=== PATIENT | female | born 1940 | race Caucasian/White ===

== ENCOUNTER 2018-02-27 22:41 | Inpatient (IN) | payer MEDICAID ==
--- NOTE | 2018-02-16 22:00 | NUR ---
SLEEPING AT THIS TIME. CALL LIGHT AT BEDSIDE AND BED ALARM ON . TELEMETRY MONITORING.
[~2018-02-27] VITALS: Ht 154.9 cm; Wt 67.6 kg
[2018-02-27 22:46] VITALS: BP 147/61
--- NOTE | 2018-02-27 22:51 | NUR ---
PT TO BR VIA W/C AND THEN TO ER LOBBY IN STABLE CONDITION.
--- NOTE | 2018-02-27 23:29 | NUR ---
PT TAKEN TO BED 2. FAMILY AT BEDSIDE
[2018-02-27] MEDS ORDERED: NACL 0.9% 1,000 ML IV ONE (23:40)
--- NOTE | 2018-02-28 00:05 | NUR ---
C/O URINARY FREQUENCY X 2 WEEKS WITH LOWER BACK PAIN . DENIES N/V/D; SKIN IS PINK/WARM/DRY; LUNGS CLEAR BL; HR EVEN AND REGULAR; PT DENIES ANY FEVER, CP, SOB, OR COUGH AT THIS TIME; PATIENT STATES PAIN OF 6/10 AT THIS TIME; VSS; PATIENT POSITIONED FOR COMFORT; HOB ELEVATED; BEDRAILS UP X2; BED DOWN. ER MD MADE AWARE OF PT STATUS. PT'S GRANDAUGHTER AT BEDSIDE.
[2018-02-28 00:09] LABS: BASOPHILS # (AUTO) 0.1 K/uL (0.00-0.22); BASOPHILS % (AUTO) 0.5 % (0.0-2.0); EOSINOPHILS % (AUTO) 0.1 % (0.0-4.0); HEMATOCRIT 36.6 % (36-48); HEMOGLOBIN 12.4 g/dL (12.0-16.0); LYMPHOCYTES # (AUTO) 1.8 K/uL (2.5-16.5); MEAN CORPUSCULAR HEMOGLOBIN 31 pg (27-31); MEAN CORPUSCULAR HGB CONC 34 g/dL (33-37); MEAN CORPUSCULAR VOLUME 91.8 fL (80-94); MONOCYTES # (AUTO) 0.9 K/uL (0.8-1.0); MONOCYTES % (AUTO) 8.4 % (1.7-9.3); NEUTROPHILS # (AUTO) 7.6 K/uL (1.8-7.7); PLATELET COUNT (AUTO) 349 K/uL (140-450); RED BLOOD CELL COUNT(AUTO) 3.98 MIL/uL (4.20-5.40); RED CELL DISTRIBUTION WIDTH 14.7 % (11.6-13.7); WHITE BLOOD COUNT (AUTO) 10.3 K/uL (4.8-10.8)
[2018-02-28] MEDS ORDERED: IBUPROFEN 800 MG TAB PO ONE (00:10)
[2018-02-28] MEDS ORDERED: IBUPROFEN 800 MG TAB ONE (00:14)
[2018-02-28 00:17] LABS: CARBON DIOXIDE 26.5 mmol/L (21-32); CHLORIDE 101 mmol/L (98-107); CREATININE 1.3 mg/dL (0.6-1.3); GLUCOSE 150 mg/dL (74-106); POTASSIUM 3.5 mmol/L (3.5-5.1); SODIUM SERUM 137 mmol/L (136-145); UREA NITROGEN, BLOOD 27 mg/dL (7-18)
--- NOTE | 2018-02-28 00:20 | NUR ---
Dr. Yang evaluating patient at bedside.
[2018-02-28 00:23] LABS: ALBUMIN 3.2 g/dL (3.4-5.0); ASPARTATE AMINOTRANSFERASE 20 U/L (15-37); TOTAL BILIRUBIN 0.4 mg/dL (0.0-1.0)
[2018-02-28] MEDS ORDERED: NACL 0.9% 1,000 ML IV ONE (00:30)
[2018-02-28] MEDS ORDERED: cefTRIAXone 1,000 MG VIAL ONE (00:46)
--- NOTE | 2018-02-28 00:59 | NUR ---
UA SENT TO LAB
--- NOTE | 2018-02-28 01:09 | NUR ---
REPORT GIVEN TO DAYNA ESTRADA SLEEPING WITHOUT ANY RESPIRATORY DISTRESS OR DISCOMFORT AT THIS MOMENT, FAMILY AT BEDSIDE.
[2018-02-28] MEDS ORDERED: KETOROLAC 15 MG/ML VIAL IVP PRN (01:10)
[2018-02-28] MEDS ORDERED: ONDANSETRON 4 MG/2 ML VIAL IM/IVP PRN (01:10)
[2018-02-28] MEDS ORDERED: HYDROcodone/APAP 5/325 MG 1 TAB TAB PO PRN (01:10)
[2018-02-28] MEDS ORDERED: DOCUSATE SODIUM 100 MG GELCAP PO PRN (01:10)
[2018-02-28] MEDS ORDERED: ACETAMINOPHEN 325 MG TAB PO PRN (01:10)
[2018-02-28 01:25] LABS: APPEARANCE,URINE CLOUDY (CLEAR); BILIRUBIN,URINE NEGATIVE (NEGATIVE); BLOOD, URINE 2+ (NEGATIVE); COLOR,URINE YELLOW (YELLOW); LEUKOCYTE ESTERASE ,URINE 3+ (NEGATIVE); NITRITE, URINE NEGATIVE (NEGATIVE); PH,URINE 5.5 (5.0-9.0); UGLUCOSE NEGATIVE (NEGATIVE)
--- NOTE | 2018-02-28 01:29 | NUR ---
Dr. Sousa evaluating patient at bedside.
[2018-02-28 01:37] LABS: WBC,URINE TOO MANY TO COUNT /HPF (0-5)
[2018-02-28 01:38] LABS: RBC,URINE 11-20 (MOD) /HPF (0-5)
--- NOTE | 2018-02-28 01:43 | NUR ---
pt sent to tele bed 121b with reshma hudson at bedside
--- NOTE | 2018-02-28 01:47 | NUR ---
Patient will be admitted to care of DR TOVAR. Admited to TELE. Will go to room 121B. Belongings list completed. Report to JESSICA SABILLON.
--- NOTE | 2018-02-28 01:52 | NUR ---
RECEIVED FROM ER PER BILLIE AWAKE AND ALERT. NO SOB. DX. OF UTI. PT AFEBRILE AT THIS TIME. CALL LIGHT WITH IN REACH. PT. ORIENTED TO ROOM AND CARE GIVERS. PT. LIVES WITH DAUGHTER BOOGIE . AT PRESENT ACCOMPANIED BY GRANDDAUGHTER RUDY WHO SPEAKS ESTONIAN WELL. SKIN INTACT WITH DISCOLORATION TO LOWER EXTREMITIES. NO EDEMA NOTED. RAPID RESPONSE EXPLAINED TO THEM.
[2018-02-28] MEDS ORDERED: POTA8TER12 PO (01:55)
[2018-02-28] MEDS ORDERED: FURO-572 PO (01:55)
[2018-02-28] MEDS ORDERED: MELO7.5T11 PO (01:55)
[2018-02-28] MEDS ORDERED: AMLO10TA PO (01:55)
[2018-02-28] MEDS ORDERED: ZYL300 PO (01:55)
[2018-02-28 02:35] VITALS: BP 116/48
[2018-02-28 02:42] LABS: PROTHROMBIN TIME 11.2 secs (10.8-13.4)
[2018-02-28 02:55] LABS: FREE T4 (FREE THYROXINE) 2.06 ng/dL (0.76-1.46); MAGNESIUM 2.1 mg/dL (1.8-2.4); PHOSPHORUS 3.1 mg/dL (2.5-4.9); THYROID STIMULATING HORMONE 1.62 uIU/mL (0.34-3.74)
[2018-02-28] MEDS: NACL 0.9% 1,000 ML IV SCH ×3 (03:06→21:09)
--- NOTE | 2018-02-28 04:49 | NUR ---
PT. SLEPT WELL THIS SHIFT. WOKE UP EASILY WHEN VITAL SIGNS TAKEN. FLACC 0-. AFEBRILE. TELEMETRY MONITORING. NOTED WITH FORGETFULNESS AND SLOW TO ANSWER.
--- NOTE | 2018-02-28 05:43 | NUR ---
AM PERSONAL HYGIENE RENDERED BY CNAS. NO COMPLAINTS DONE. ABLE TO VERBALIZE SIMPLE NEEDS. NO COMPLAINTS OF PAIN DONE. AFEBRILE. TELEMETRY MONITORING. CALL LIGHT WITH IN REACH.
--- NOTE | 2018-02-28 06:54 | NUR ---
PT. AWAKE AND ASSISTED TO RESTROOM TO URINATE. BED ALARM ON. CALL LIGHT WITH IN REACH.
--- NOTE | 2018-02-28 07:20 | NUR ---
RECEIVED REPORT FROM CAMP HOUSEKEEPER NURSE, PT IS SLEEPING IN BED BUT EASILY AWAKEN, AMBULATES WITH ASSIST, IV IS ON THE RIGHT AC, PATENT, INTACT, FLUSHING WELL, SKIN IS INTACT, NO S/S OF RESPIRATORY DISTRESS OR DISCOMFORT NOTED, DISCUSSED PLAN OF CARE WITH PT, PT VERBALIZED UNDERSTANDING, SAFETY/FALL PRECAUTIONS ARE IN PLACE, CALL LIGHT WITHIN REACH, WILL CONTINUE TO MONITOR.
--- NOTE | 2018-02-28 07:39 | NUR ---
ENDORSED TO THE NEXT RN FOR CONTINUITY OF CARE AWAKE AND ALERT. NO SOB. NO PAIN COMPLAINTS DONE.
[2018-02-28 07:56] LABS: BASOPHILS # (AUTO) 0.1 K/uL (0.00-0.22); BASOPHILS % (AUTO) 1.2 % (0.0-2.0); EOSINOPHILS % (AUTO) 0.5 % (0.0-4.0); HEMATOCRIT 37.7 % (36-48); HEMOGLOBIN 12.7 g/dL (12.0-16.0); LYMPHOCYTES # (AUTO) 1.8 K/uL (2.5-16.5); LYMPHOCYTES % (AUTO) 23.5 % (20.5-51.1); MEAN CORPUSCULAR HEMOGLOBIN 31 pg (27-31); MEAN CORPUSCULAR HGB CONC 34 g/dL (33-37); MEAN CORPUSCULAR VOLUME 93.4 fL (80-94); MONOCYTES # (AUTO) 0.7 K/uL (0.8-1.0); MONOCYTES % (AUTO) 9.7 % (1.7-9.3); NEUTROPHILS # (AUTO) 4.9 K/uL (1.8-7.7); NEUTROPHILS % (AUTO) 65.1 % (42.2-75.2); PLATELET COUNT (AUTO) 339 K/uL (140-450); RED BLOOD CELL COUNT(AUTO) 4.04 MIL/uL (4.20-5.40); RED CELL DISTRIBUTION WIDTH 14.9 % (11.6-13.7); WHITE BLOOD COUNT (AUTO) 7.5 K/uL (4.8-10.8)
[2018-02-28 07:57] LABS: ANION GAP 12.7 (8-16); CARBON DIOXIDE 24.1 mmol/L (21-32); CHLORIDE 110 mmol/L (98-107); GLUCOSE 119 mg/dL (74-106); POTASSIUM 3.8 mmol/L (3.5-5.1); SODIUM SERUM 143 mmol/L (136-145); UREA NITROGEN, BLOOD 22 mg/dL (7-18)
[2018-02-28 08:00] VITALS: BP 130/58
[2018-02-28 08:12] LABS: CHOL/HDL RATIO 3.7 (1-4.5); MAGNESIUM 2.1 mg/dL (1.8-2.4); PHOSPHORUS 3.8 mg/dL (2.5-4.9)
--- NOTE | 2018-02-28 08:46 | NUR ---
PATIENT HAS BEEN SCREENED AND CATEGORIZED MODERATE NUTRITION RISK. PATIENT WILL BE SEEN WITHIN 3-5 DAYS OF ADMISSION. 03/02/18 03/04/[address]
[2018-02-28] MEDS ORDERED: NON-FORMULARY ITEM (Meloxicam* (Mobic*) 7.5 MG) PO SCH (09:00)
[2018-02-28] MEDS: LACTOBACILLUS RHAMNOSUS GG 1 EACH CAP PO SCH (09:40)
[2018-02-28] MEDS: ALLOPURINOL 300 MG TAB PO SCH (09:41)
[2018-02-28] MEDS: FUROSEMIDE 20 MG TAB PO SCH (09:41)
[2018-02-28] MEDS: POTASSIUM CHLORIDE 8 MEQ TABER PO SCH (09:42)
[2018-02-28] MEDS: amLODIPine 5 MG TAB PO SCH (09:42)
--- NOTE | 2018-02-28 10:45 | NUR ---
ASSISTED PT TO RESTROOM AND BACK INTO BED.
[2018-02-28 12:00] VITALS: BP 132/63
[2018-02-28] MEDS: KETOROLAC 15 MG/ML VIAL IVP SCH ×2 (12:08→17:44)
--- NOTE | 2018-02-28 13:00 | NUR ---
PT IS RESTING IN BED, NO S/S OF RESPIRATORY DISTRESS OR DISCOMFORT NOTED, FAMILY IS AT BEDSIDE, CALL LIGHT WITHIN REACH.
--- NOTE | 2018-02-28 15:30 | NUR ---
PT IS SLEEPING IN BED AT THIS TIME, FAMILY IS AT BEDSIDE, CALL LIGHT WITHIN REACH.
[2018-02-28 16:00] VITALS: BP 154/71
--- NOTE | 2018-02-28 17:33 | NUR ---
PT IS RESTING IN BED, FAMILY IS AT BEDSIDE, CALL LIGHT WITHIN REACH.
--- NOTE | 2018-02-28 19:15 | NUR ---
ENDORSED PT TO ACTIVATED SLUDGE OPERATOR NURSE FOR CONTINUITY OF CARE. PT STABLE AT THIS TIME, FAMILY IS AT BEDSIDE.
--- NOTE | 2018-02-28 19:27 | NUR ---
RECEIVED FROM AM RN IN BED AWAKE AND WITH FAMILY MEMBERS VISITING. PT. SITTING UP IN BED. CALL LIGHT WITH IN REACH. NO SOB. DENIES PAIN AT THIS TIME. PT. DENIES PAIN AT THIS TIME. ON BED ALARM. ENCOURAGED TO CALL FOR ANY HELP SHE MAY NEED. PT. ASSISTED TO RESTROOM INSIDE ROOM RT FALL RISK. IVF SITE TO RAC INTACT AND NO INFILTRATION NOTED. GOOD BLOOD RETURN. TELEMETRY MONITORING. NSR ON MONITOR.
[2018-02-28 20:05] VITALS: BP 121/48
--- NOTE | 2018-02-28 21:30 | NUR ---
PT. STILL AWAKE AND WATCHING TV. CALL LIGHT WITH IN REACH. BED ALARM ON. ENCOURAGED TO REST.
[2018-02-28 23:59] VITALS: BP 137/51
[2018-03-01] MEDS: KETOROLAC 15 MG/ML VIAL IVP SCH ×4 (00:06→18:01)
--- NOTE | 2018-03-01 00:21 | NUR ---
PT. WOKE UP AND REQUESTED TO GO RESTROOM TO URINATE. ASSISTED. WENT BACK TO BED AND MADE SURE BED ALARM ON. CALL LIGHT WITH IN REACH. MEDICATED WITH TORADOL IVP FOR MUSCULAR PAINS ORDERED . HX. ARTHRITIS AND GOUT. ABLE TO VERBALIZE SIMPLE NEEDS IN ESTONIAN. IVF SITE INTACT AND NO INFILTRATION.
--- NOTE | 2018-03-01 03:32 | NUR ---
SLEEPING WELL. NO COMPLAINTS . TELEMETRY MONITORING. CALL LIGHT WITH IN REACH.
--- NOTE | 2018-03-01 04:13 | NUR ---
AWAKE AT THIS TIME. VITAL SIGNS TAKEN. ABLE TO VERBALIZE SIMPLE NEEDS. WELDER/FABRICATOR ASSISTED PT. TO RESTROOM . ABLE TO URINATE. CALL LIGHT WITH IN REACH AND ON BED ALARM. AM PERSONAL HYGIENE WILL BE RENDERED BY WELDER/FABRICATOR. AFEBRILE 98.7 PER TEMPORAL SCAN.
[2018-03-01 04:15] VITALS: BP 129/48
[2018-03-01] MEDS: NACL 0.9% 1,000 ML IV SCH (06:13)
--- NOTE | 2018-03-01 06:16 | NUR ---
SLEEPING WELL. WAKES UP EASILY WHEN CALLED BY NAME. VERBALIZES SIMPLE NEEDS WELL. TELEMETRY MONITORING. NSR ON MONITOR.
--- NOTE | 2018-03-01 07:14 | NUR ---
ENDORSED TO THE NEXT RN FOR CONTINUITY OF CARE. AWAKE , ALERT AND ORIENTED. NO COMPLAINTS DONE.
--- NOTE | 2018-03-01 07:15 | NUR ---
RECEIVED REPORT FROM SITE MONITOR RN. PATIENT IS AAOX4, HAS NO SIGNS AND SYMPTOMS OF ACUTE DISTRESS NOTED AT THIS TIME. PATIENT HAS IV TO THE RIGHT HAND 20G, INFUSING NS AT 100 ML/HR. SITE IS CLEAN, DRY, PATENT AND INTACT. DISCUSSED PLAN OF CARE WITH PATIENT AND SHE VERBALIZED UNDERSTANDING. BED IN LOWEST POSITION, SIDE RAILS UP X2, CALL LIGHT WITHIN REACH. WILL CONTINUE TO MONITOR.
[2018-03-01 08:00] VITALS: BP 110/44
[2018-03-01] MEDS: amLODIPine 5 MG TAB PO SCH (09:00)
[2018-03-01] MEDS: ALLOPURINOL 300 MG TAB PO SCH (09:32)
[2018-03-01] MEDS: LACTOBACILLUS RHAMNOSUS GG 1 EACH CAP PO SCH (09:32)
[2018-03-01] MEDS: FUROSEMIDE 20 MG TAB PO SCH (09:33)
[2018-03-01] MEDS: POTASSIUM CHLORIDE 8 MEQ TABER PO SCH (09:33)
--- NOTE | 2018-03-01 10:32 | NUR ---
DECREASED PATIENTS IV FLUIDS TO 30 ML/HR ORDERED. PATIENT IV SITE IS PATENT, WITH NO SIGNS OF REDNESS OR PAIN. PATIENT RESTING IN BED. WILL CONTINUE TO MONITOR.
[2018-03-01 11:11] LABS: BASOPHILS % (AUTO) 0.5 % (0.0-2.0); EOSINOPHILS # (AUTO) 0.1 K/uL (0-0.4); EOSINOPHILS % (AUTO) 1.4 % (0.0-4.0); HEMATOCRIT 33.1 % (36-48); HEMOGLOBIN 11.1 g/dL (12.0-16.0); LYMPHOCYTES # (AUTO) 1.5 K/uL (2.5-16.5); LYMPHOCYTES % (AUTO) 22.8 % (20.5-51.1); MEAN CORPUSCULAR HEMOGLOBIN 31 pg (27-31); MEAN CORPUSCULAR HGB CONC 34 g/dL (33-37); MEAN CORPUSCULAR VOLUME 92.4 fL (80-94); MONOCYTES # (AUTO) 0.8 K/uL (0.8-1.0); MONOCYTES % (AUTO) 11.9 % (1.7-9.3); NEUTROPHILS # (AUTO) 4.1 K/uL (1.8-7.7); NEUTROPHILS % (AUTO) 63.4 % (42.2-75.2); PLATELET COUNT (AUTO) 316 K/uL (140-450); RED BLOOD CELL COUNT(AUTO) 3.58 MIL/uL (4.20-5.40); WHITE BLOOD COUNT (AUTO) 6.5 K/uL (4.8-10.8)
[2018-03-01] MEDS ORDERED: ALBUTEROL SULFATE/IPRATROPIU 3 ML SOL IH PRN (11:25)
[2018-03-01 11:30] LABS: CARBON DIOXIDE 24.1 mmol/L (21-32); CHLORIDE 110 mmol/L (98-107); CREATININE 1.1 mg/dL (0.6-1.3); GLUCOSE 124 mg/dL (74-106); POTASSIUM 3.1 mmol/L (3.5-5.1); SODIUM SERUM 143 mmol/L (136-145); UREA NITROGEN, BLOOD 21 mg/dL (7-18)
[2018-03-01 11:56] VITALS: BP 116/44
--- NOTE | 2018-03-01 14:08 | NUR ---
PATIENT HAS BEEN DOWNGRADED TO MED SURG.
[2018-03-01] MEDS ORDERED: POTASSIUM CHLORIDE 10 MEQ TABER PO SCH (14:30)
[2018-03-01 16:00] VITALS: BP 146/60
--- NOTE | 2018-03-01 19:27 | NUR ---
ENDORSED PATIENT TO UX CONSULTANT RN FOR CONTINUITY OF CARE. PATIENT IN STABLE CONDITION.
--- NOTE | 2018-03-01 19:30 | NUR ---
RECEIVED PATIENT AWAKE SITTING ON THE SIDE OF THE BED ACCOMPANIED BY FAMILY MEMBERS. PATIENT IS BELIZEAN SPEAKING PATIENT. EXPLAINED TO FAMILY MEMBERS THE PLAN OF CARE. FALL PRECAUTION APPLIED. CALL LIGHT WITHIN REACH. WILL CONTINUE TO MONITOR.
--- NOTE | 2018-03-01 21:05 | NUR ---
SEEN PATIENT ASLEEP ON BED. NO S/S OF DISTRESS NOTED AT THIS TIME. CALL LIGHT WITHIN REACH. WILL CONTINUE TO MONITOR.
--- NOTE | 2018-03-02 | NUR ---
NO COMPLAINED OF PAIN AT THIS TIME. TORADOL NOT GIVEN. WILL CONTINUE TO MONITOR..
--- NOTE | 2018-03-02 00:50 | NUR ---
ASSISTING PATIENT TO BATHROOM. FALL PRECAUTION APPLIED. WAIT OUTSIDE THE BATHROOM AND ASSIST PATIENT BACK TO BED. ALL NEEDS ATTENDED. CALL LIGHT WITHIN REACH. WILL CONTINUE TO MONITOR.
--- NOTE | 2018-03-02 02:30 | NUR ---
ESCORTED PATIENT TO BATHROOM AND WENT #2. PATIENT ASSISTED BACK TO BED. PATIENT TOLERATED WELL. FALL PRECAUTION APPLIED. CALL LIGHT WITHIN REACH. WILL CONTINUE TO MONITOR.
[2018-03-02 04:00] VITALS: BP 136/52
--- NOTE | 2018-03-02 04:00 | NUR ---
SEEN PATIENT AWAKE LYING ON BED. V/S TAKEN AND RECORDED. ALL NEEDS ATTENDED. CALL LIGHT WITHIN REACH. NO S/S OF DISTRESS NOTED AT THIS TIME.
[2018-03-02] MEDS: KETOROLAC 15 MG/ML VIAL IVP SCH ×5 (06:32→23:06)
[2018-03-02] MEDS: NACL 0.9% 1,000 ML IV SCH ×2 (07:09→15:56)
--- NOTE | 2018-03-02 07:22 | NUR ---
GAVE REPORT TO AM SHIFT RN AT BEDSIDE FOR CONTINUITY OF CARE. PATIENT IN STABLE CONDITION.
--- NOTE | 2018-03-02 07:23 | NUR ---
REPORT RECEIVED FROM SECURITY ALARM INSTALLER. PT IS A'OX3 VERBALLY RESPONSIVE , MACANESE SPEAKING, VERBALLY RESPONSIVE ABLE TO MAKER HER NEEDS KNOWN. DENIES ANY PAIN AT THIS TIME. VS WNL. RESPIRATION EVEN AND UNLABOURED ON RA, LUNGS CTA ON ALL LOBES. IV SITE CLEAN DRY INTACT AND PATENT ON IVF PER ORDERS. NKDA. AMBULATE WITH ASSIST. ABDOMEN SOFT NON DISTENDED. REVIEW PLAN OF CARE, PT VERBALIZED UNDERSTANDING. SAFETY MEASURES IN PLACE. CALL LIGHT WITHIN REACH. HOURLY ROUNDS ONGOING. WILL CONTINUE TO MONITOR CLOSELY.
[2018-03-02] MEDS ORDERED: MECLIZINE 25 MG TAB PO PRN (07:40)
[2018-03-02 08:00] VITALS: BP 119/57
[2018-03-02 08:50] LABS: ANION GAP 11.4 (8-16); CARBON DIOXIDE 24.3 mmol/L (21-32); CHLORIDE 108 mmol/L (98-107); GLUCOSE 103 mg/dL (74-106); POTASSIUM 3.7 mmol/L (3.5-5.1); SODIUM SERUM 140 mmol/L (136-145); UREA NITROGEN, BLOOD 18 mg/dL (7-18)
[2018-03-02] MEDS: amLODIPine 5 MG TAB PO SCH (08:50)
[2018-03-02] MEDS: POTASSIUM CHLORIDE 8 MEQ TABER PO SCH (08:51)
[2018-03-02] MEDS: LACTOBACILLUS RHAMNOSUS GG 1 EACH CAP PO SCH (08:51)
[2018-03-02] MEDS: FUROSEMIDE 20 MG TAB PO SCH (08:51)
[2018-03-02] MEDS: ALLOPURINOL 300 MG TAB PO SCH (08:52)
--- NOTE | 2018-03-02 09:00 | NUR ---
PATIENT SITTING IN BED WATCHING TV. NO DISTRESS NOTED. SCHEDULED MEDICATIONS DUE GIVEN. WILL CONTINUE TO MONITOR.
[2018-03-02 09:13] LABS: HEMATOCRIT 34.1 % (36-48); HEMOGLOBIN 11.6 g/dL (12.0-16.0); MEAN CORPUSCULAR VOLUME 94.9 fL (80-94); WHITE BLOOD COUNT (AUTO) 7.5 K/uL (4.8-10.8)
[2018-03-02 09:14] LABS: BASOPHILS % (AUTO) 0.2 % (0.0-2.0); EOSINOPHILS % (AUTO) 1.4 % (0.0-4.0); LYMPHOCYTES # (AUTO) 2.4 K/uL (2.5-16.5); LYMPHOCYTES % (AUTO) 32.7 % (20.5-51.1); MEAN CORPUSCULAR HEMOGLOBIN 32 pg (27-31); MEAN CORPUSCULAR HGB CONC 34 g/dL (33-37); MONOCYTES # (AUTO) 0.7 K/uL (0.8-1.0); MONOCYTES % (AUTO) 9.8 % (1.7-9.3); NEUTROPHILS # (AUTO) 4.3 K/uL (1.8-7.7); NEUTROPHILS % (AUTO) 55.9 % (42.2-75.2); PLATELET COUNT (AUTO) 341 K/uL (140-450)
[2018-03-02 09:15] LABS: EOSINOPHILS # (AUTO) 0.1 K/uL (0-0.4)
--- NOTE | 2018-03-02 09:35 | NUR ---
RADIOLOGIST AT BEDSIDE TO TAKE PATIENT FOR HEAD CT. WILL CONTINUE TO MONITOR WHEN PATIENT RETURNS.
--- NOTE | 2018-03-02 12:42 | NUR ---
PATIENT SITTING IN BED TALKING WITH FAMILY MEMBERS AT BEDSIDE. NO DISTRESS NOTED. DENIES ANY PAIN. SCHEDULED MEDICATIONS DUE GIVEN. SAFETY MEASURES IN PLACE, CALL LIGHT WITHIN REACH. WILL CONTINUE TO MONITOR.
--- NOTE | 2018-03-02 15:00 | NUR ---
PATIENT LYING DOWN IN BED SLEEPING, AROUSABLE BY VOICE. NO DISTRESS NOTED. CONDITION UNCHANGED. WILL CONTINUE TO MONITOR.
[2018-03-02 16:00] VITALS: BP 125/58
--- NOTE | 2018-03-02 19:27 | NUR ---
GAVE REPORT TO HAND WOODWORKING SANDER NURSE FOR CONTINUITY OF CARE. PATIENT IN STABLE CONDITION.
--- NOTE | 2018-03-02 19:30 | NUR ---
RECEIVED REPORT FROM DAYSNMFT NURSE AT BEDSIDE FOR CONTINUITY OF CARE. PT AAOX4. PT TURKISH SPEAKING. PT IV NOTED RFA 22G NS 30ML/HR. NO SOB NO S/S OF DISTRESS ON RA. BED LOWERED CALL LIGHT WITHIN REACH WILL CONTINUE TO MONITOR.
[2018-03-03] VITALS: BP 134/55
--- NOTE | 2018-03-03 00:06 | NUR ---
ADMIN PAIN MED 1 HR AGO. PT CURRENTLY SLEEPING WILL CONTINUE TO MONITOR.
[2018-03-03] MEDS: NACL 0.9% 1,000 ML IV SCH (04:55)
[2018-03-03] MEDS: KETOROLAC 15 MG/ML VIAL IVP SCH (05:31)
--- NOTE | 2018-03-03 07:30 | NUR ---
ENDORSED REPORT TO DAYSHIFT NURSE AT BEDSIDE FOR CONTINUITY OF CARE.
[2018-03-03 08:00] VITALS: BP 117/48
--- NOTE | 2018-03-03 08:00 | NUR ---
PATIENT AWAKE, ALERT. RESPIRATION EVEN, UNLABOR ON ROOM AIR. SKIN DRY AND WARM. DENIED PAIN, SOB AT THIS TIME. IV PATENT AND INTACT. PLAN OF CARE WAS DISCUSSED WITH PATIENT. BED AT LOW POSITION, SIDE RAILS UP. CALL LIGHT WITHIN REACH. BED ALARM ACTIVE
[2018-03-03] MEDS ORDERED: PNEUMOCOCCAL VACCINE 23 MCG/0.5 ML VIAL IMVAC SCH (09:30)
--- NOTE | 2018-03-03 10:00 | NUR ---
PATIENT IS AWAKE, ALERT. RESPIRATION EVEN, UNLABOR ON ROOM AIR. NO DISTRESS NOTED AT THIS TIME. MEDS WERE GIVEN PER ORDER. CALL LIGHT WITHIN REACH
[2018-03-03] MEDS: POTASSIUM CHLORIDE 8 MEQ TABER PO SCH (10:19)
[2018-03-03] MEDS: LACTOBACILLUS RHAMNOSUS GG 1 EACH CAP PO SCH (10:20)
[2018-03-03] MEDS: amLODIPine 5 MG TAB PO SCH (10:20)
[2018-03-03] MEDS: ALLOPURINOL 300 MG TAB PO SCH (10:21)
[2018-03-03] MEDS: FUROSEMIDE 20 MG TAB PO SCH (10:21)
[2018-03-03] MEDS ORDERED: SULF-58 PO (12:08)
--- NOTE | 2018-03-03 12:36 | NUR ---
DISCHARGE INSTRUCTION AND PRESCRIPTION WERE GIVEN TO PATIENT AND FAMILY. PATIENT AND FAMILY VERBALIZED UNDERSTANDING. IV WAS REMOVED, CATHETER INTACT, NO ACTIVE BLEEDING SEEND. PNEUMO VAC WAS GIVEN PER ORDER.
--- NOTE | 2018-03-03 13:00 | NUR ---
ALL BELONGINGS WERE TAKEN WITH THE PATIENT. ID BAND WAS REMOVED. PATIENT WAS ESCORTED OUT BY STAFF IN WHEELCHAIR. PATIENT IS STABLE AT THIS TIME
== END 2018-03-03 13:00 | disposition home or self-care (01) | DRG 48 ==
LOC: MED 22:41 → MTU 02-28 01:09
PROVIDERS: ADMIT General Practice; ATTEND General Practice
PROC: 3E0234Z Introduction of Serum, Toxoid and Vaccine into Muscle, Percutaneous Approach (ICD-10-PCS; principal; 2018-03-03)
DX: G90.9 Disorder of the autonomic nervous system, unspecified (principal); N17.0 Acute kidney failure with tubular necrosis; J84.9 Interstitial pulmonary disease, unspecified; G93.41 Metabolic encephalopathy; N39.0 Urinary tract infection, site not specified; G31.9 Degenerative disease of nervous system, unspecified; I10 Essential (primary) hypertension; E44.1 Mild protein-calorie malnutrition; M10.9 Gout, unspecified; E66.3 Overweight; M19.90 Unspecified osteoarthritis, unspecified site; B96.20 Unspecified Escherichia coli [E. coli] as the cause of diseases classified elsewhere; Z16.20 Resistance to unspecified antibiotic; Z68.28 Body mass index [BMI] 28.0-28.9, adult; Z79.1 Long term (current) use of non-steroidal anti-inflammatories (NSAID); Z79.899 Other long term (current) drug therapy; Z90.49 Acquired absence of other specified parts of digestive tract; Z23 Encounter for immunization
CPT/HCPCS: 36415; 70450; 71045; 80048; 80053; 81001; 82150; 83036; 83605; 83690; 83735; 83880; 84100; 84436; 84439; 84443; 84479; 84484; 85025; 85610; 85730; 87040; 87081; 87086; 87186; 90732; 93005; 96361; 96365; 97110; 97116; 97530; 99285; J0696; J1885; J7030; J7060; Q0092

== ENCOUNTER 2019-08-05 20:49 | Emergency (ER) | payer BC, MEDICAID ==
[~2019-08-05] VITALS: Ht 157.5 cm; Wt 74.8 kg
[~2019-08-05 20:49] MED LIST: AMLO10TA PO; FURO-572 PO; MELO7.5T11 PO; POTA8TER12 PO; SULF-58 PO; ZYL300 PO
[2019-08-05 21:33] VITALS: BP 142/69
--- NOTE | 2019-08-05 21:38 | NUR ---
URINE CUP HANDED TO PT FOR SAMPLE
--- NOTE | 2019-08-05 21:44 | NUR ---
PT TAKEN TO BED 3
--- NOTE | 2019-08-05 21:46 | NUR ---
CAME IN WITH C/O DIARRHEA WITH ABD PAIN , FATIQUE SINCE YESTERDAY
[2019-08-05] MEDS ORDERED: NACL 0.9% 1,000 ML IV ONE (22:25)
[2019-08-05] MEDS ORDERED: ONDANSETRON 4 MG/2 ML VIAL IVP ONE (22:25)
[2019-08-05 22:51] LABS: BASOPHILS # (AUTO) 0.1 K/uL (0.00-0.22); BASOPHILS % (AUTO) 0.9 % (0.0-2.0); EOSINOPHILS # (AUTO) 0.1 K/uL (0-0.4); EOSINOPHILS % (AUTO) 1.2 % (0.0-4.0); HEMATOCRIT 36.9 % (36-48); HEMOGLOBIN 12.6 g/dL (12.0-16.0); LYMPHOCYTES # (AUTO) 1.8 K/uL (2.5-16.5); LYMPHOCYTES % (AUTO) 25.6 % (20.5-51.1); MEAN CORPUSCULAR HEMOGLOBIN 31 pg (27-31); MEAN CORPUSCULAR HGB CONC 34 g/dL (33-37); MEAN CORPUSCULAR VOLUME 90.3 fL (80-94); MONOCYTES # (AUTO) 0.6 K/uL (0.8-1.0); MONOCYTES % (AUTO) 8.8 % (1.7-9.3); NEUTROPHILS # (AUTO) 4.5 K/uL (1.8-7.7); NEUTROPHILS % (AUTO) 63.5 % (42.2-75.2); PLATELET COUNT (AUTO) 202 K/uL (140-450); RED BLOOD CELL COUNT(AUTO) 4.08 MIL/uL (4.20-5.40); WHITE BLOOD COUNT (AUTO) 7.1 K/uL (4.8-10.8)
[2019-08-05 22:52] LABS: APPEARANCE,URINE CLEAR (CLEAR); BILIRUBIN,URINE NEGATIVE (NEGATIVE); BLOOD, URINE TRACE-I (NEGATIVE); COLOR,URINE YELLOW (YELLOW); LEUKOCYTE ESTERASE ,URINE 1+ (NEGATIVE); NITRITE, URINE NEGATIVE (NEGATIVE); UGLUCOSE NEGATIVE (NEGATIVE)
[2019-08-05 23:14] LABS: ALBUMIN 3.2 g/dL (3.4-5.0); ANION GAP 13.2 (8-16); ASPARTATE AMINOTRANSFERASE 33 U/L (15-37); CARBON DIOXIDE 27.4 mmol/L (21-32); CHLORIDE 105 mmol/L (98-107); CREATININE 1.1 mg/dL (0.6-1.3); GLUCOSE 113 mg/dL (74-106); LIPASE 447 U/L (73-393); POTASSIUM 3.6 mmol/L (3.5-5.1); SODIUM SERUM 142 mmol/L (136-145); TOTAL BILIRUBIN 0.4 mg/dL (0.0-1.0); UREA NITROGEN, BLOOD 23 mg/dL (7-18)
--- NOTE | 2019-08-05 23:31 | NUR ---
PT RETURN FROM CT
[2019-08-06 01:29] VITALS: BP 142/69
--- NOTE | 2019-08-06 01:30 | NUR ---
Patient discharged with v/s stable. Written and verbal after care instructions given and explained. Patient alert, oriented and verbalized understanding of instructions. Ambulatory with steady gait. All questions addressed prior to discharge. ID band removed. Patient advised to follow up with PMD. Rx of BENTYL/MACROBID/ACETAMINOPHEN given. Patient educated on indication of medication including possible reaction and side effects. Opportunity to ask questions provided and answered.
== END 2019-08-06 01:30 | disposition home or self-care (01) ==
LOC: MED 20:49
DX: N39.0 Urinary tract infection, site not specified (principal); R19.7 Diarrhea, unspecified; K21.9 Gastro-esophageal reflux disease without esophagitis; I10 Essential (primary) hypertension; Z79.899 Other long term (current) drug therapy; Z90.49 Acquired absence of other specified parts of digestive tract
CPT/HCPCS: 36415; 74176; 80053; 81001; 83690; 85025; 87086; 87804; 96361; 96374; 99284; J2405; J7030; 87186

== ENCOUNTER 2020-05-15 13:26 | Inpatient (IN) | payer BC, SELFPAY ==
[~2020-05-15] VITALS: Ht 154.9 cm; Wt 74.4 kg
--- NOTE | 2020-05-15 13:42 | NUR ---
PATIENT WHEELCHAIR ASSISTED TO BED 1.
--- NOTE | 2020-05-15 13:43 | NUR ---
TO BED 1 VIA W/C WITH C/O DIFFICULT BREATHING. DX COVID (+) YESTERDAY. O2 SAT NOW 84%. PT IS PRIMARILY LITHUANIAN SPEAKING. ATTACHED TO CM = SR WITHOUT ECTOPY. SOB IS NOTED ON EXERTION
[2020-05-15 13:45] VITALS: BP 120/53
--- NOTE | 2020-05-15 14:10 | NUR ---
G DRAWN PER DR. RUANO
[2020-05-15 14:20] VITALS: BP 139/56
[2020-05-15] MEDS ORDERED: DEXAMETHASONE 10 MG/ML VIAL IVP ONE (14:20)
--- NOTE | 2020-05-15 14:20 | NUR ---
PT PLACED ON HIGH FLOW 100% 40 LPM WITH NRB PLACED OVER. SPO2 92% PT TOLERATING WELL MADE AWARE OF OXYGEN DELIVERY DEVICES AND BEDSIDE.
--- NOTE | 2020-05-15 14:30 | NUR ---
BLOOD CULTURES DRAWN X 2, LABS DRAWN
[2020-05-15 14:31] LABS: BASOPHILS % (AUTO) 0.1 % (0.0-2.0); HEMATOCRIT 38.9 % (36-48); HEMOGLOBIN 13.1 g/dL (12.0-16.0); LYMPHOCYTES # (AUTO) 1.4 K/uL (2.5-16.5); LYMPHOCYTES % (AUTO) 9.1 % (20.5-51.1); MEAN CORPUSCULAR HEMOGLOBIN 30 pg (27-31); MEAN CORPUSCULAR HGB CONC 34 g/dL (33-37); MEAN CORPUSCULAR VOLUME 90.3 fL (80-94); MONOCYTES # (AUTO) 0.5 K/uL (0.8-1.0); MONOCYTES % (AUTO) 3.3 % (1.7-9.3); NEUTROPHILS # (AUTO) 13.2 K/uL (1.8-7.7); NEUTROPHILS % (AUTO) 87.5 % (42.2-75.2); PLATELET COUNT (AUTO) 284 K/uL (140-450); RED CELL DISTRIBUTION WIDTH 13.3 % (11.6-13.7); WHITE BLOOD COUNT (AUTO) 15.1 K/uL (4.8-10.8)
[2020-05-15 14:52] LABS: ALBUMIN 2.6 g/dL (3.4-5.0); ANION GAP 17.7 (8-16); ASPARTATE AMINOTRANSFERASE 59 U/L (15-37); CARBON DIOXIDE 23.5 mmol/L (21-32); CHLORIDE 96 mmol/L (98-107); CREATININE 1.5 mg/dL (0.6-1.3); GLUCOSE 164 mg/dL (74-106); POTASSIUM 4.2 mmol/L (3.5-5.1); SODIUM SERUM 133 mmol/L (136-145); TOTAL BILIRUBIN 0.3 mg/dL (0.0-1.0); UREA NITROGEN, BLOOD 29 mg/dL (7-18)
[2020-05-15 14:54] LABS: LACTATE DEHYDROGENASE 406 U/L (81-234)
[2020-05-15] MEDS ORDERED: AZITHROMYCIN 500 MG in DEXTROSE 5% 250 ML IV ONE (14:55)
[2020-05-15] MEDS ORDERED: AZITHROMYCIN 500 MG INJ VIAL IV ONE (15:18)
[2020-05-15] MEDS ORDERED: cefTRIAXone 1,000 MG VIAL ONE (15:19)
[2020-05-15 15:39] LABS: C-REACTIVE PROTEIN QUANT 32.9 mg/dL (0.0-0.9)
[2020-05-15] MEDS ORDERED: POTASSIUM CHLORIDE 10 MEQ TABER PO PRN (15:50)
[2020-05-15] MEDS ORDERED: ONDANSETRON 4 MG/2 ML VIAL IM/IVP PRN (15:50)
[2020-05-15] MEDS ORDERED: DOCUSATE SODIUM 100 MG GELCAP PO PRN (15:50)
[2020-05-15] MEDS ORDERED: ACETAMINOPHEN 325 MG TAB PO PRN (15:50)
[2020-05-15] MEDS ORDERED: ALBUTEROL HFA MDI 90 MCG/ACTUATION 8 GM INH PRN (15:50)
[2020-05-15] MEDS ORDERED: HYDROcodone/APAP 7.5/325 MG 1 TAB PO PRN (15:50)
--- NOTE | 2020-05-15 16:40 | NUR ---
PATIENT ARRIVED ON FLOOR VIA FROYLAN, PT ON O2 NRB MASK 15L WITH HIGH FLOW OXYGEN. SATURATION 85%. IV SITE INTACT, ASYMPTOMATIC, 18G R AC SL. PATIENT AO4 BULGARIAN SPEAKING. VERBALIZED PLAN OF CARE, PATIENT VERBALIZED UNDERSTANDING. PT BULGARIAN SPEAKING ONLY. PATIENT DX COVID + AND ACUTE RESPIRATORY FAILURE. MRSA SCREENING DONE. DROPLET PRECAUTIONS IN PLACE. BED IN LOWEST POSITION WITH ALARM AND BRAKES ON. CALL LIGHT WITHIN REACH, WILL CONTINUE TO MONITOR PATIENT.
[2020-05-15 16:50] VITALS: BP 130/78
--- NOTE | 2020-05-15 16:50 | NUR ---
PT TO BE ADMITTED. REPORT CALLED
[2020-05-15] MEDS ORDERED: CLINICAL MONITORING MC PRN (17:00)
--- NOTE | 2020-05-15 17:05 | NUR ---
TRANSFERED TO FLOOR ATTACHED TO TRANSPORT MONITOR ACCOMPANIED BY ERT AND RN. O2 SAT HAS REMAINED LABILE. 96%N OW
--- NOTE | 2020-05-15 17:45 | NUR ---
CALLED RT, PT O2 AT 84-85% ON 15L NRB WITH HIGH FLOW. RT BOB SAYS HE WILL COME TO ASSESS PATIENT.
[2020-05-15] MEDS ORDERED: REMDESIVIR (EUA) 200 MG in NACL 0.9% 100 ML IV SCH (18:00)
[2020-05-15 18:09] LABS: RSV NEGATIVE (NEGATIVE)
--- NOTE | 2020-05-15 18:13 | NUR ---
SCHEDULED MEDICATION GIVEN. PATIENT TOLERATING IT. O2 AT 83-85%. INFORM PATIENT THAT SHE IS ON BEDREST, IF SHE NEEDS ANYTHING, USE CALL LIGHT. NO EXERTION. PATIENT VERBALIZED UNDERSTANDING.
[2020-05-15 19:08] LABS: CHOL/HDL RATIO 4.1 (1-4.5); FREE T4 (FREE THYROXINE) 4.28 ng/dL (0.76-1.46); MAGNESIUM 2.3 mg/dL (1.8-2.4); PHOSPHORUS 3.4 mg/dL (2.5-4.9); THYROID STIMULATING HORMONE 2.85 uIU/mL (0.34-3.74)
--- NOTE | 2020-05-15 19:20 | NUR ---
REPORT GIVEN TO FUN HOUSE ATTENDANT AT BEDSIDE FOR CONTINUITY OF CARE. PT HAS NO S/S OF DISTRESS OR SOB. O2 ON NRB MASK 15L AND HIGH FLOW OXYGEN 85%
--- NOTE | 2020-05-15 19:22 | NUR ---
RECEIVED BEDSIDE REPORT FROM DAYSHIFT NURSE. PATIENT IS AWAKE, ALERT, AND ORIENTED. IV 18 G ON RAC IS INTACT AND PATENT. PATIENT IS ON 15 L NRB AND O2 SAT 83%. PLAN OF CARE WAS DISCUSSED. SAFETY MEASURES IN PLACE. BED IS IN LOW POSITION AND CALL LIGHT WITHIN REACH. WILL CONTINUE TO MONITOR.
--- NOTE | 2020-05-15 19:27 | NUR ---
RT IS AT BEDSIDE. RT INCREASED TO 45% HIGH FLOW WITH 15 L NRB MASK. PT IS SATING AT 80% WITH NO DISTRESS NOTED. WILL CONTINUE TO MONITOR.
[2020-05-15 20:00] VITALS: BP 140/59
[2020-05-15] MEDS ORDERED: NACL 0.9% 1,000 ML IV ONE (20:25)
--- NOTE | 2020-05-15 21:26 | NUR ---
ALL SCHEDULED MEDS GIVEN. PT IS STABLE. O2 SAT IS STILL AT 80% NO RESPIRATORY DISTRESS NOTED. WILL CONTINUE TO MONITOR
--- NOTE | 2020-05-15 21:42 | NUR ---
SPOKE WITH NINA MINNA (SON) AND OBTAINED CONSENT FOR CONVALESCENT PLASMA.
--- NOTE | 2020-05-15 23:10 | NUR ---
PATIENT NEEDED ASSISTANCE TO BATHROOM. USE BED LEW INSTEAD F GOING TO THE BATHROOM. COULD NOT COLLECT UA SAMPLE SINCE PATIENT DID NOT VOID.
--- NOTE | 2020-05-15 23:20 | NUR ---
PT IS STABLE. PT IS IN BED WATCHING TV. RESPIRATION IS EVEN AND UNLABORED WITH NRB MASK RUNNING AT 15 L AND HIGH FLOW AT 45 L. O2 SATURATION IS STILL AT 80%. NO DISTRESS NOTED. WILL CONTINUE TO MONITOR
[2020-05-16] VITALS: BP 123/61
--- NOTE | 2020-05-16 01:15 | NUR ---
PT IS AWAKE IN BED WATCHING TV. RESPIRATION IS EVEN AND UNLABORED WITH NO S/S OF RESPIRATORY DISTRESS. O2 SATURATION INCREASED FROM 80% TO 88%. STILL ON 15 L NRB AND 45 L HIGH FLOW. WILL CONTINUE TO MONITOR
[2020-05-16 04:00] VITALS: BP 129/68
--- NOTE | 2020-05-16 04:30 | NUR ---
PATIENT REMOVED HER OXYGEN MASK. EDUCATED THE PATIENT REGARDING THE OXYGEN MASK. PATIENT NODS AND VERBALIZE UNDERSTANDING. WILL CONTINUE TO MONITOR.
--- NOTE | 2020-05-16 06:51 | NUR ---
PATIENT HAS BEEN SCREENED AND CATEGORIZED MODERATE NUTRITION RISK. PATIENT WILL BE SEEN WITHIN 3-5 DAYS OF ADMISSION. 05/18/20-05/20/20 SHAY CALLEJAS MS, RDN
[2020-05-16 07:10] LABS: ANION GAP 18.4 (8-16); CARBON DIOXIDE 21.6 mmol/L (21-32); CHLORIDE 101 mmol/L (98-107); CREATININE 1.6 mg/dL (0.6-1.3); GLUCOSE 163 mg/dL (74-106); SODIUM SERUM 137 mmol/L (136-145); UREA NITROGEN, BLOOD 38 mg/dL (7-18)
[2020-05-16 07:16] LABS: BASOPHILS % (AUTO) 0.1 % (0.0-2.0); HEMOGLOBIN 12.7 g/dL (12.0-16.0); LYMPHOCYTES # (AUTO) 1.5 K/uL (2.5-16.5); LYMPHOCYTES % (AUTO) 8.2 % (20.5-51.1); MEAN CORPUSCULAR HEMOGLOBIN 31 pg (27-31); MEAN CORPUSCULAR HGB CONC 34 g/dL (33-37); MEAN CORPUSCULAR VOLUME 91.1 fL (80-94); MONOCYTES # (AUTO) 0.7 K/uL (0.8-1.0); NEUTROPHILS # (AUTO) 16.2 K/uL (1.8-7.7); NEUTROPHILS % (AUTO) 87.7 % (42.2-75.2); PLATELET COUNT (AUTO) 313 K/uL (140-450); RED BLOOD CELL COUNT(AUTO) 4.17 MIL/uL (4.20-5.40); RED CELL DISTRIBUTION WIDTH 13.3 % (11.6-13.7); WHITE BLOOD COUNT (AUTO) 18.5 K/uL (4.8-10.8)
--- NOTE | 2020-05-16 07:40 | NUR ---
ENDORSED PATIENT TO DAY SHIFT NURSE FOR CONTINUITY OF CARE.
[2020-05-16 07:46] LABS: MAGNESIUM 2.4 mg/dL (1.8-2.4); PHOSPHORUS 3.3 mg/dL (2.5-4.9)
[2020-05-16 08:05] VITALS: BP 120/55
--- NOTE | 2020-05-16 08:05 | NUR ---
PT IS RESTING SEMIFOWLERS ON BED AND STATES NO PAIN OR DISCOMFORT. TOLERATING NRB AND 02 SAT 85%.
[2020-05-16] MEDS: FUROSEMIDE 20 MG TAB PO SCH (08:37)
[2020-05-16] MEDS: AZITHROMYCIN 250 MG TAB PO SCH (08:37)
[2020-05-16] MEDS: allopurinoL 300 MG TAB PO SCH (08:37)
[2020-05-16] MEDS: amLODIPine 5 MG TAB PO SCH (08:37)
[2020-05-16] MEDS: ZINC SULF 220 MG CAP PO SCH (08:37)
[2020-05-16] MEDS: ASCORBIC ACID 500 MG TAB PO SCH (08:37)
[2020-05-16] MEDS: POTASSIUM CHLORIDE 8 MEQ TABER PO SCH (08:39)
[2020-05-16] MEDS ORDERED: COMMUNICATION ORDER MC SCH (09:00)
[2020-05-16] MEDS ORDERED: NON-FORMULARY ITEM (Meloxicam* (Mobic*) 7.5 MG) PO SCH (09:00)
--- NOTE | 2020-05-16 09:55 | NUR ---
PT SPO2 79% ON HIGH FLOW 100% AND NRB. PT PLACED ON BIPAP 14/8,R12,100%. PT TOLERATING WELL AT THIS TIME AND SPO2 UP TO 90%. NURSE MADE AWARE. BIPAP PLUGGED INTO A RED OUTLET WITH ALARMS ON AND FUNCTIONING. WILL CONTINUE TO MONITOR.
[2020-05-16 10:04] LABS: APPEARANCE,URINE CLEAR (CLEAR); BILIRUBIN,URINE NEGATIVE (NEGATIVE); BLOOD, URINE NEGATIVE (NEGATIVE); COLOR,URINE YELLOW (YELLOW); LEUKOCYTE ESTERASE ,URINE NEGATIVE (NEGATIVE); NITRITE, URINE NEGATIVE (NEGATIVE); PH,URINE 5.5 (5.0-9.0); UGLUCOSE NEGATIVE (NEGATIVE)
[2020-05-16 10:29] LABS: RBC,URINE 0-5 /HPF (0-5)
[2020-05-16 10:30] LABS: WBC,URINE 0-5 /HPF (0-5)
--- NOTE | 2020-05-16 11:02 | NUR ---
PT SLEEPING AND TOLERATING BIPAP ON BED SEMI FOWLERS. PT STATES NO PAIN.
[2020-05-16 11:13] LABS: ALBUMIN 2.4 g/dL (3.4-5.0); BILIRUBIN,DIRECT 0.1 mg/dL (0.0-0.3); TOTAL BILIRUBIN 0.2 mg/dL (0.0-1.0)
[2020-05-16 11:55] VITALS: BP 114/54
--- NOTE | 2020-05-16 13:17 | NUR ---
PT STATES NO PAIN AND WAS ABLE TO EAT LUNCH. PT AFTER DECIDED TO REST AND TOLERATING BIPAP.
--- NOTE | 2020-05-16 15:31 | NUR ---
FIO2 TITRATED TO 90%, NURSE MADE AWARE. WILL CONTINUE TO MONITOR.
--- NOTE | 2020-05-16 15:35 | NUR ---
PT STATES NO PAIN AND TOLERATING BIPAP. RESTING SEMI FOWLERS.
[2020-05-16 16:07] VITALS: BP 111/57
[2020-05-16] MEDS: REMDESIVIR (EUA) 100 MG in NACL 0.9% 100 ML IV SCH (17:26)
--- NOTE | 2020-05-16 17:28 | NUR ---
PT STATED NO PAIN AND RESTING L LATERAL. PT REFUSED PRONE POSITION AT THIS TIME.
--- NOTE | 2020-05-16 17:51 | NUR ---
PT REMAINS ON BIPAP TOLERATING WELL. FIO2 TITRATED TO 85% SPO2 93%. BIPAP ALARMS ON AND FUNCTIONING.
--- NOTE | 2020-05-16 18:10 | NUR ---
PT SLEEPING L LATERAL ON BED AND STATES NO PAIN OR DISCOMFORT. TOLERATING BIPAP AND PT STABLE, WILL ENDORSE CARE TO PRODUCTION EXPERT RN.
--- NOTE | 2020-05-16 19:00 | NUR ---
RECEIVED BEDSIDE REPORT FROM DAY SHIFT NURSE. PATIENT IS AWAKE, ALERT, AND COOPERATIVE. RESPIRATION EVEN UNLABORED ON ROOM BIPAP. SATING 91% NO DISTRESS NOTED. SKIN IS WARM AND DRY. IV PATENT AND INTACT. PLAN OF CARE WAS DISCUSSED. ALL SAFETY MEASURES IN PLACE. BED IS AT LOW POSITION. CALL LIGHT WITHIN REACH. WILL CONTINUE TO MONITOR.
[2020-05-16 20:00] VITALS: BP 128/53
--- NOTE | 2020-05-16 20:40 | NUR ---
ALL SCHEDULED MEDS WERE GIVEN PER ORDER. NO ASE NOTED. WILL CONTINUE TO MONITOR
--- NOTE | 2020-05-16 21:00 | NUR ---
PATIENT START DESATURATING TO 88% ON BIPAP. ASSESS PATIENT NO DISTRESS NOTED. PAGED RT.
--- NOTE | 2020-05-16 21:10 | NUR ---
RT INCREASED BIPAP TO 100% NOW PATIENT IS SATING 95%. WILL CONTINUE TO MONITOR
--- NOTE | 2020-05-16 22:20 | NUR ---
DOCTOR ORDER A REPEAT COVID TEST. SWAB PATIENT. SPECIMEN SENT TO LAB.
--- NOTE | 2020-05-16 23:15 | NUR ---
CHECKED PATIENT. PATIENT ASLEEP RESPIRATION EVEN UNLABORED ON BIPAP. NO DISTRESS NOTED. WILL CONTINUE TO MONITOR.
[2020-05-17] VITALS: BP 108/50
--- NOTE | 2020-05-17 02:00 | NUR ---
CHECKED PATIENT. PATIENT SLEEPING RESPIRATION EVEN UNLABORED ON BIPAP. SATING 95% WILL CONTINUE TO MONITOR
[2020-05-17 04:00] VITALS: BP 131/59
--- NOTE | 2020-05-17 04:30 | NUR ---
CHECKED PATIENT. PATIENT SLEEPING RESPIRATION EVEN UNLABORED ON BIPAP. WILL CONTINUE TO MONITOR.
--- NOTE | 2020-05-17 06:30 | NUR ---
START PLASMA TRANSFUSION.
[2020-05-17 06:52] LABS: BASOPHILS % (AUTO) 0.1 % (0.0-2.0); HEMATOCRIT 36.7 % (36-48); HEMOGLOBIN 12.3 g/dL (12.0-16.0); LYMPHOCYTES % (AUTO) 5.2 % (20.5-51.1); MEAN CORPUSCULAR HEMOGLOBIN 31 pg (27-31); MEAN CORPUSCULAR HGB CONC 34 g/dL (33-37); MEAN CORPUSCULAR VOLUME 91.2 fL (80-94); MONOCYTES # (AUTO) 0.7 K/uL (0.8-1.0); MONOCYTES % (AUTO) 3.6 % (1.7-9.3); NEUTROPHILS # (AUTO) 17.1 K/uL (1.8-7.7); NEUTROPHILS % (AUTO) 91.1 % (42.2-75.2); PLATELET COUNT (AUTO) 338 K/uL (140-450); RED BLOOD CELL COUNT(AUTO) 4.02 MIL/uL (4.20-5.40); RED CELL DISTRIBUTION WIDTH 13.4 % (11.6-13.7); WHITE BLOOD COUNT (AUTO) 18.8 K/uL (4.8-10.8)
--- NOTE | 2020-05-17 07:00 | NUR ---
CONVALESCENT PLASMA TRANSFUSION ENDED. NO TRANSFUSION REACTION NOTED. WILL CONTINUE TO MONITOR.
[2020-05-17 08:00] VITALS: BP 119/55
[2020-05-17] MEDS: ASCORBIC ACID 500 MG TAB PO SCH (08:26)
[2020-05-17] MEDS: FUROSEMIDE 20 MG TAB PO SCH (08:27)
[2020-05-17] MEDS: POTASSIUM CHLORIDE 8 MEQ TABER PO SCH (08:27)
[2020-05-17] MEDS: ZINC SULF 220 MG CAP PO SCH (08:27)
[2020-05-17] MEDS: allopurinoL 300 MG TAB PO SCH (08:27)
[2020-05-17] MEDS: AZITHROMYCIN 250 MG TAB PO SCH (08:27)
[2020-05-17] MEDS: amLODIPine 5 MG TAB PO SCH (08:28)
--- NOTE | 2020-05-17 08:51 | NUR ---
ALL SCHEDULED MEDS WERE GIVEN PER ORDER. WILL CONTINUE TO MONITOR
[2020-05-17 09:06] LABS: T4 (THYROXINE) 5.1 ug/dL (4.5-12.0)
[2020-05-17 09:23] LABS: ALBUMIN 2.4 g/dL (3.4-5.0); BILIRUBIN,DIRECT 0.1 mg/dL (0.0-0.3); TOTAL BILIRUBIN 0.2 mg/dL (0.0-1.0)
--- NOTE | 2020-05-17 09:56 | NUR ---
RECEIVED PT ON BIPAP TOLERATING WELL. SETTINGS 14/8,R12 AND FIO2 TITRATED TO 90% SPO2 94%. BIPAP ALARMS ON AND FUNCTIONING. WILL CONTINUE TO MONITOR.
--- NOTE | 2020-05-17 11:15 | NUR ---
REPORT RECEIBVED FROM ALICIA Galo RN
[2020-05-17 12:00] VITALS: BP 124/58
--- NOTE | 2020-05-17 12:10 | NUR ---
SOCIAL WORK NOTE: Patient's Orientation Unable To Assess Information Provided By BERNABE ANDRES - SON Comments SW WAS UNABLE TO MEET PATIENT AT BEDSIDE DUE TO MEDICAL CONDITION. SW COMPLETED ASSESSMENT WITH PATIENT'S SON. Mold Maintenance Technician, Realtionship and Phone Number BERNABE THOMAS [phone] Healthcare Power of Complaint Specialist No Does Patient Have a POLST No Identifying Problems No Social Work Triggers Is A Social Work Consult Needed No Mandate Report Filed No Explanation Of Identifying Problems PATIENT IS AN 79-YEAR-OLD FEMALE ADMITTED FOR COVID AND PNEUMONIA. PATIENT HAS PMHX OF HYPERTENSION AND GERD. PATIENT'S SON REPORTED NO HISTORY OF SUBSTANCE ABUSE OR MENTAL HEALTH Admitted From Home Pre-Admission Level Of Functioning Status Independent/Ambulatory Prior DME Walker Dialysis Comments N/A Living Situation Lives With Family House Patient Had Caregiver No Home Support No Caregiver Issues Financial Issues No Known Financial Issue Referral To The Financial Counselor Needed No Factors/Needs No D/C Needs Identified Explanation And Or Other Factors Affecting/Possible DC Needs PATIENT'S SON STATED HE WOULD PROVIDE TRANSPORTATION HOME. Pt/Rep Participated In Discharge Plan Yes Patient/Family Agress With Discharge Plan Yes Discharge Plan Comments TENTATIVE DISCHARGE PLAN IS FOR PATIENT TO RETURN HOME. DC Plan Status Initiated
--- NOTE | 2020-05-17 13:34 | NUR ---
FIO2 TITRATED TO 85%
--- NOTE | 2020-05-17 14:00 | NUR ---
RT REDUCED BIPAP FIO2 TO 85%, PT SATTING 94% AT THIS TIME AND TOLERATING WELL.
[2020-05-17 16:00] VITALS: BP 122/54
--- NOTE | 2020-05-17 16:20 | NUR ---
DC PLANN[age] YRS OLD FEMALE PATIENT WAS ADMITTED FROM HOME WITH A DX OF COVID PNEUMONIA , ACUTE RESP FAILURE. PT HAS A HX OF HTN, AND GERD . CXR SHOWED BILATERAL MULTILOBAR PNEUMONIA. RAPID COVID TEST POSITIVE . STARTED COVID PROTOCOL , IV ABX ROCEPHIN AND AZITHROMYCIN AND CONVALESCENT PLASMA. BLOOD AND URINE CULTURE PENDING. CONSULTED WITH JUSTIN AND MARTINEZ. DC PLAN TO GO HOME WHEN STABLE. CM TO FOLLOW. Addendum: 05/18/20 at 1424 by Romy López CM ON BIPAP, FIO2 65%, O2 SAT 96%. ON ROCEPHIN, AZITHROMYCIN, DECADRON. SEEN BY JUSTIN, WEAN OFF O2, RECOMMENDED PRONING. Addendum: 05/19/20 at 1204 by Romy López CM STILL ON BIPAP, FIO2 60%, O2 SAT 92%. SEEN BY ID - CONTINUE CURRENT THERAPY. STILL ON ROCEPHIN AND AZITHROMYCIN Addendum: 05/25/20 at 1633 by Ioana Amanda RN DC PLANNING: CONTINUE COVID-PROTOCOL OFF ABX STILL REQUIRE HIGH FLOW 30L FIO2 100 % PULMO AND NEPHRO FOLLOWING PROGNOSIS GUARDED . CM TO FOLLOW
--- NOTE | 2020-05-17 16:29 | NUR ---
UPDATED THE PATIENT'S SON, MICHELINE, REGARDING PATIENT'S POC AND NO VISITOR POLICY AT THIS TIME. MICHELINE VERBALIZED UNDERSTANDING AND PT FAMILY VISITING AND VISIBLE FROM OUTSIDE THE PATIENT'S WINDOW.
--- NOTE | 2020-05-17 17:10 | NUR ---
PT REMAINS ON BIPAP TOLERATING WELL. FAMILY AT WINDOW. PT NOT IN ANY DISTRESS AT THIS TIME. BIPAP ALARMS ON AND FUNCTIONING.
[2020-05-17] MEDS: REMDESIVIR (EUA) 100 MG in NACL 0.9% 100 ML IV SCH (18:04)
--- NOTE | 2020-05-17 19:20 | NUR ---
RECEIVED REPORT FROM VANESSA LOPEZ. PT IN BED RESTING. PT AAOX3, ON BEDREST, ABLE TO MAKE NEEDS KNOWN. PT CURRENTLY ON BIPAP. PT NOT IN DISTRESS. CURRENT O2 SAT 90%. ABDOMEN SOFT AND NON-TENDER, BOWEL SOUNDS PRESENT. SKIN IS WARM, DRY, AND INTACT. PT WITH IV ACCESS ON RIGHT AC G20 PATENT AND INTACT, TKO. PT DENIES ANY PAIN OR DISCOMFORT AT THIS TIME. PT KEPT COMFORTABLE. NO REQUESTS MADE. SAFETY MEASURES IN PLACE. CALL LIGHT WITHIN REACH. WILL CONTINUE TO MONITOR.
[2020-05-17 20:00] VITALS: BP 121/68
--- NOTE | 2020-05-17 21:03 | NUR ---
VS STABLE. SCHEDULED MEDS GIVEN. BIPAP IN PLACE. PT NOT IN DISTRESS. O2 SAT 90%. NO REQUESTS MADE AT THIS TIME. DENIES ANY PAIN OR DISCOMFORT. SAFETY MEASURES IN PLACE. CALL LIGHT WITHIN REACH. WILL CONTINUE TO MONITOR.
--- NOTE | 2020-05-17 22:09 | NUR ---
ROUNDS MADE. PT RESTING WITH BIPAP IN PLACE. PT NOT IN DISTRESS. PT KEPT COMFORTABLE. SAFETY MEASURES IN PLACE. CALL LIGHT WITHIN REACH. WILL CONTINUE TO MONITOR.
[2020-05-18] VITALS: BP 126/61
--- NOTE | 2020-05-18 00:12 | NUR ---
VITAL SIGNS STABLE. PT IN BED RESTING. BIPAP IN PLACE. PT NOT IN DISTRESS. PT DENIES ANY PAIN OR DISCOMFORT AT THIS TIME. NO REQUESTS MADE. SAFETY MEASURES IN PLACE. CALL LIGHT WITHIN REACH. WILL CONTINUE TO MONITOR.
--- NOTE | 2020-05-18 02:04 | NUR ---
PT IN BED WITH HOB ELEVATED. BIPAP IN PLACE. PT ASLEEP. NO S/SX OF RESPI DISTRESS NOTED. O2 SAT 92%. SAFETY MEASURES IN PLACE. CALL LIGHT WITHIN REACH. WILL CONTINUE TO MONITOR.
[2020-05-18 04:00] VITALS: BP 118/54
--- NOTE | 2020-05-18 04:01 | NUR ---
VITAL SIGNS STABLE. PT IN BED RESTING. BIPAP IN PLACE. PT NOT IN DISTRESS. O2 SAT 93%. DENIES ANY PAIN OR DISTRESS AT THIS TIME. NO REQUESTS MADE AT THIS TIME. PT KEPT COMFORTABLE. SAFETY MEASURES IN PLACE. CALL LIGHT WITHIN REACH. WILL CONTINUE TO MONITOR.
[2020-05-18 05:59] LABS: BASOPHILS % (AUTO) 0.2 % (0.0-2.0); HEMATOCRIT 38.1 % (36-48); HEMOGLOBIN 12.7 g/dL (12.0-16.0); LYMPHOCYTES # (AUTO) 0.9 K/uL (2.5-16.5); LYMPHOCYTES % (AUTO) 4.8 % (20.5-51.1); MEAN CORPUSCULAR HEMOGLOBIN 30 pg (27-31); MEAN CORPUSCULAR HGB CONC 33 g/dL (33-37); MEAN CORPUSCULAR VOLUME 90.8 fL (80-94); MONOCYTES # (AUTO) 0.8 K/uL (0.8-1.0); MONOCYTES % (AUTO) 4.6 % (1.7-9.3); NEUTROPHILS # (AUTO) 16.5 K/uL (1.8-7.7); NEUTROPHILS % (AUTO) 90.4 % (42.2-75.2); PLATELET COUNT (AUTO) 424 K/uL (140-450); RED CELL DISTRIBUTION WIDTH 13.6 % (11.6-13.7); WHITE BLOOD COUNT (AUTO) 18.3 K/uL (4.8-10.8)
[2020-05-18 06:43] LABS: ALBUMIN 2.5 g/dL (3.4-5.0); ANION GAP 16.9 (8-16); ASPARTATE AMINOTRANSFERASE 31 U/L (15-37); CARBON DIOXIDE 23.4 mmol/L (21-32); CHLORIDE 111 mmol/L (98-107); CREATININE 1.4 mg/dL (0.6-1.3); GLUCOSE 194 mg/dL (74-106); MAGNESIUM 3.6 mg/dL (1.8-2.4); POTASSIUM 4.3 mmol/L (3.5-5.1); SODIUM SERUM 147 mmol/L (136-145); TOTAL BILIRUBIN 0.3 mg/dL (0.0-1.0)
[2020-05-18 07:01] LABS: UREA NITROGEN, BLOOD 65 mg/dL (7-18)
--- NOTE | 2020-05-18 07:25 | NUR ---
RECEIVED PT A/O X3. NO SOB NOTED. PT DENIES CHEST PAIN. ON BIPAP. O2 SAT 90%. REPORT RECEIVED FROM NIGHT RN. WILL CONTINUE TO MONITOR.
--- NOTE | 2020-05-18 07:26 | NUR ---
ENDORSED TO DAY SHIFT NURSE FOR CONTINUITY OF CARE
[2020-05-18 08:00] VITALS: BP 126/63
[2020-05-18] MEDS: allopurinoL 300 MG TAB PO SCH (09:07)
[2020-05-18] MEDS: VITAMIN D 400 IU TAB PO SCH (09:08)
[2020-05-18] MEDS: FUROSEMIDE 20 MG TAB PO SCH (09:09)
[2020-05-18] MEDS: amLODIPine 5 MG TAB PO SCH (09:09)
[2020-05-18] MEDS: AZITHROMYCIN 250 MG TAB PO SCH (09:10)
[2020-05-18] MEDS: ASCORBIC ACID 500 MG TAB PO SCH (09:10)
[2020-05-18] MEDS: ZINC SULF 220 MG CAP PO SCH (09:11)
[2020-05-18] MEDS: POTASSIUM CHLORIDE 8 MEQ TABER PO SCH (09:29)
--- NOTE | 2020-05-18 12:00 | NUR ---
PT PLACED TO HIGH MASON'S POSITION. O2 SAT 100% ON A BIPAP. NO SOB NOTED.
[2020-05-18 15:12] VITALS: BP 123/65
[2020-05-18] MEDS: REMDESIVIR (EUA) 100 MG in NACL 0.9% 100 ML IV SCH (18:34)
--- NOTE | 2020-05-18 19:25 | NUR ---
RECEIVED REPORT AND CONTINUITY OF CARE FROM AM NURSE.
--- NOTE | 2020-05-18 19:30 | NUR ---
PT IS RESTING. DENIES PAIN. NO RESPIRATORY DISTRESS. NO CHANGE OF CONDITION. ENDORSED TO NIGHT RN. WILL CONTINUE PLAN OF CARE.
[2020-05-18 20:00] VITALS: BP 142/65
--- NOTE | 2020-05-18 21:04 | NUR ---
UPON PHYSICAL ASSESSMENT, PT IS A/OX4, HEAD IS NORMOCEPHALIC, SPEECH IS CLEAR, EQUAL BILATERAL EYEBROWS, SYMMETRICAL SMILE, PMMM. NO JVD NOTED AT THIS TIME. CHEST IS SYMMETRICAL, BREATHING SPONTANEOUSLY BIPAP, RESPIRATION IS EVEN AND UNLABORED. ABD IS SOFT, FLAT, NONTENDER, ACTIVE BOWEL TONES NOTED. SKIN IS CDI, SMOOTH, AND WARM. IV IS PATENT, ASYMPTOMATIC, INTACT. BILATERAL PEDAL PULSES NOTED. LABS REVIEWED. REVIEWED POC WITH PT. ADMINISTERED SCHEDULED MEDICATION. EDUCATION RENDERED. CALL LIGHT IS WITHIN REACH. SAFETY PRECAUTIONS IN PLACE. ALL STAFF TO OBSERVE ISOLATION PRECAUTION.
--- NOTE | 2020-05-18 23:02 | NUR ---
PT IS SLEEPING. BREATHING SPONTANEOUSLY.
[2020-05-19] VITALS: BP 138/52
--- NOTE | 2020-05-19 01:01 | NUR ---
PT IS SLEEPING. BIPAP AND TELE MONITOR IN PLACE. NO SIGNS OF DISTRESS AT THIS TIME.
--- NOTE | 2020-05-19 02:54 | NUR ---
PT IS SLEEPING. BIBPAP ATTACHED. VISIBLE CHEST RISE NOTED.
[2020-05-19 04:00] VITALS: BP 155/65
--- NOTE | 2020-05-19 05:02 | NUR ---
PT IS SLEEPING. NO SIGNS OF DISTRESS NOTED.
[2020-05-19 06:17] LABS: BASOPHILS % (AUTO) 0.1 % (0.0-2.0); HEMATOCRIT 37.9 % (36-48); HEMOGLOBIN 12.8 g/dL (12.0-16.0); LYMPHOCYTES # (AUTO) 0.8 K/uL (2.5-16.5); LYMPHOCYTES % (AUTO) 4.4 % (20.5-51.1); MEAN CORPUSCULAR HEMOGLOBIN 31 pg (27-31); MEAN CORPUSCULAR HGB CONC 34 g/dL (33-37); MEAN CORPUSCULAR VOLUME 91.4 fL (80-94); MONOCYTES # (AUTO) 0.9 K/uL (0.8-1.0); NEUTROPHILS # (AUTO) 16.2 K/uL (1.8-7.7); NEUTROPHILS % (AUTO) 90.5 % (42.2-75.2); PLATELET COUNT (AUTO) 425 K/uL (140-450); RED BLOOD CELL COUNT(AUTO) 4.14 MIL/uL (4.20-5.40); RED CELL DISTRIBUTION WIDTH 13.7 % (11.6-13.7); WHITE BLOOD COUNT (AUTO) 17.9 K/uL (4.8-10.8)
[2020-05-19 06:45] LABS: ALBUMIN 2.6 g/dL (3.4-5.0); ANION GAP 14.2 (8-16); ASPARTATE AMINOTRANSFERASE 39 U/L (15-37); CARBON DIOXIDE 22.9 mmol/L (21-32); CHLORIDE 114 mmol/L (98-107); CREATININE 1.4 mg/dL (0.6-1.3); GLUCOSE 216 mg/dL (74-106); LACTATE DEHYDROGENASE 439 U/L (81-234); MAGNESIUM 3.7 mg/dL (1.8-2.4); PHOSPHORUS 4.6 mg/dL (2.5-4.9); POTASSIUM 4.1 mmol/L (3.5-5.1); SODIUM SERUM 147 mmol/L (136-145); TOTAL BILIRUBIN 0.4 mg/dL (0.0-1.0); UREA NITROGEN, BLOOD 59 mg/dL (7-18)
--- NOTE | 2020-05-19 07:15 | NUR ---
RECEIVED REPORT FROM NIGHT NURSE PATIENT IS AAOX3 ON BIPAP OXYGEN SATURATION AT 98% SKIN INTACT, BEDBOUND IV SITE INTACT IN RIGHT AC SALINE LOCK. ON REGULAR DIET. SAFETY MEASURES IN PLACE AND CALL LIGHT WITHIN REACH. WILL CONTINUE TO MONITOR.
[2020-05-19 08:00] VITALS: BP 148/57
--- NOTE | 2020-05-19 09:30 | NUR ---
MEDICATION DUE GIVEN, CHECK VITAL SIGNS BP 148/57 SC 75 AND ON BIPAP. ABLE SWALLOW AND DRINK JUICE. IV IS OUT LEAKING. SAFETY MEASURES IN PLACE AND CALL LIGHT WITHIN REACH. WILL CONTINUE TO MONITOR.
[2020-05-19] MEDS: VITAMIN D 400 IU TAB PO SCH (09:46)
[2020-05-19] MEDS: amLODIPine 5 MG TAB PO SCH (09:47)
[2020-05-19] MEDS: AZITHROMYCIN 250 MG TAB PO SCH (09:47)
[2020-05-19] MEDS: ASCORBIC ACID 500 MG TAB PO SCH (09:47)
[2020-05-19] MEDS: ZINC SULF 220 MG CAP PO SCH (09:47)
[2020-05-19] MEDS: FUROSEMIDE 20 MG TAB PO SCH (09:48)
[2020-05-19] MEDS: POTASSIUM CHLORIDE 8 MEQ TABER PO SCH (09:48)
[2020-05-19] MEDS: allopurinoL 300 MG TAB PO SCH (09:55)
--- NOTE | 2020-05-19 10:00 | NUR ---
IV OUT AT THIS TIME, PATIENT IS ABLE TO EAT AND TOLERATED FLUIDS AND SMALL AMOUNT OF FOOD.
[2020-05-19 12:00] VITALS: BP 142/60
--- NOTE | 2020-05-19 12:00 | NUR ---
REINSERTED IV ON THE RIGHT WRIST GAUGE 24. INTACT AND PATENT.PATIENT OXYGEN SATURATION LEVEL AT 94%
[2020-05-19] MEDS ORDERED: LOVENOX 1MG/KG Q24H SUBQ SCH (13:05)
--- NOTE | 2020-05-19 14:00 | NUR ---
REPOSITIONED PATIENT AND ELEVATED HEAD OF BED, OXYGEN SATURATION AT 96% NO DISTRESS NOTED
--- NOTE | 2020-05-19 14:04 | NUR ---
05/19/20 RD INITIAL ASSESSMENT COMPLETED PLEASE REFER TO NUTRITION ASSESSMENT UNDER CARE ACTIVITY FOR ESTIMATED NUTRITIONAL NEEDS. 1. DOWNGRADED DIET TO GROUND DIET TOLERATED 2. RECOMMEND ENSURE TID 3. PROVIDE ASSISTANCE WITH MEALS AND ENCOURAGE PO INTAKE 4. MONITOR PO INTAKE FOR RISK OF ASPIRATION 5. RD TO FOLLOW-UP 2-3 DAYS, HIGH RISK KIANNA HERNANDEZ, RD
[2020-05-19] MEDS: ENOXAPARIN 80 MG/0.8 ML SYR SUBQ SCH (15:31)
[2020-05-19 16:00] VITALS: BP 146/60
[2020-05-19] MEDS: REMDESIVIR (EUA) 100 MG in NACL 0.9% 100 ML IV SCH (17:17)
--- NOTE | 2020-05-19 18:00 | NUR ---
MEDICATION DUE GIVEN INFUSING WELL NO DISTRESS NOTED, OXYGEN SATURATION AT 94%
--- NOTE | 2020-05-19 19:14 | NUR ---
ENDORSED TO NIGHT NURSE FOR CONTINUITY OF CARE. PT IS STABLE.
--- NOTE | 2020-05-19 19:17 | NUR ---
RECEIVED REPORT AND CONTINUITY OF CARE FROM AM NURSE.
[2020-05-19 20:00] VITALS: BP 150/57
[2020-05-20] VITALS (7 sets, daily range): BP systolic 131–156; BP diastolic 56–78
--- NOTE | 2020-05-20 01:13 | NUR ---
RT AT BEDSIDE TO CHECK ON THE PT. NO SIGNS OF DISTRESS THIS TIME.
--- NOTE | 2020-05-20 04:37 | NUR ---
NUCLEAR FUEL PROCESSING TECHNICIAN AT BEDSIDE TO RENDER BAMBI CARE. PT REPOSITIONED. NO SIGNS OF DISTRESS NOTED.
[2020-05-20 06:40] LABS: BASOPHILS % (AUTO) 0.2 % (0.0-2.0); HEMATOCRIT 41.9 % (36-48); LYMPHOCYTES # (AUTO) 0.6 K/uL (2.5-16.5); LYMPHOCYTES % (AUTO) 3.6 % (20.5-51.1); MEAN CORPUSCULAR HEMOGLOBIN 31 pg (27-31); MEAN CORPUSCULAR HGB CONC 33 g/dL (33-37); MEAN CORPUSCULAR VOLUME 92.6 fL (80-94); MONOCYTES # (AUTO) 0.8 K/uL (0.8-1.0); MONOCYTES % (AUTO) 4.7 % (1.7-9.3); NEUTROPHILS # (AUTO) 14.6 K/uL (1.8-7.7); NEUTROPHILS % (AUTO) 91.5 % (42.2-75.2); PLATELET COUNT (AUTO) 468 K/uL (140-450); RED BLOOD CELL COUNT(AUTO) 4.52 MIL/uL (4.20-5.40); WHITE BLOOD COUNT (AUTO) 15.9 K/uL (4.8-10.8)
[2020-05-20 06:54] LABS: ALBUMIN 2.8 g/dL (3.4-5.0); ANION GAP 17.3 (8-16); ASPARTATE AMINOTRANSFERASE 30 U/L (15-37); CARBON DIOXIDE 24.7 mmol/L (21-32); CHLORIDE 119 mmol/L (98-107); GLUCOSE 242 mg/dL (74-106); LACTATE DEHYDROGENASE 439 U/L (81-234); MAGNESIUM 3.6 mg/dL (1.8-2.4); PHOSPHORUS 4.5 mg/dL (2.5-4.9); TOTAL BILIRUBIN 0.4 mg/dL (0.0-1.0)
--- NOTE | 2020-05-20 07:15 | NUR ---
RECEIVED ENDORSEMENT FROM MS ACCESS DATABASE DEVELOPER, AWAKE, ALERT, ORIENTEDX3, WITH BIPAP14/8, FIO2-60% SATURATING AT 90% NON LABORED NOTED. WITH IV CANNULA G20 AT RT AC ON SALINE LOCK NOTED. DX WITH COVID POSITIVE AND PNEUMONIA, ON DROPLET ISOLATION, SAFETY MEASURES IN PLACE AND CONTINUE MONITOR.
--- NOTE | 2020-05-20 07:27 | NUR ---
REC'D PT ON VISION BIPAP SETTINGS 14/8 RR 12 FIO2 60% ALARMS ON AND AUDIBLE AND BVM AT HOB BIPAP IS PLUGGED INTO RED OUTLET, B\S ARE DIMINISHED AND PT IS WEARING MED FACE PT IS AWAKE
[2020-05-20 08:30] LABS: CREATININE 1.4 mg/dL (0.6-1.3)
[2020-05-20 08:31] LABS: UREA NITROGEN, BLOOD 58 mg/dL (7-18)
--- NOTE | 2020-05-20 09:49 | NUR ---
RT INFORMED IF CAN REMOVE THE BIPAP FOR A MINUTE, DUE MEDICATION PO GIVEN AND 20ML OF ENSURE GIVEN, TOLERATED WELL
[2020-05-20] MEDS: ZINC SULF 220 MG CAP PO SCH (09:52)
[2020-05-20] MEDS: ASCORBIC ACID 500 MG TAB PO SCH (09:52)
[2020-05-20] MEDS: VITAMIN D 400 IU TAB PO SCH (09:53)
[2020-05-20] MEDS: AZITHROMYCIN 250 MG TAB PO SCH (09:54)
[2020-05-20] MEDS: allopurinoL 300 MG TAB PO SCH (09:55)
[2020-05-20] MEDS: POTASSIUM CHLORIDE 8 MEQ TABER PO SCH (09:56)
[2020-05-20] MEDS: amLODIPine 5 MG TAB PO SCH (09:56)
--- NOTE | 2020-05-20 10:08 | NUR ---
PATIENT APPARENTLY REMOVED THE BIPAP, PLACED IT BACK AND INSTRUCTED NO TO REMOVED IT, STILL NEED REINFORCEMENT.
--- NOTE | 2020-05-20 12:35 | NUR ---
DR. JIMENEZ, PULTN MADE ROUNDS AND REVIEWED THE LABS, IV FLUIDS WITH 0.9% NS AT 50MLHOUR ORDERED. RT INFORMED TO CHANGE BIPAP TO HIGH FLOW O2 ORDERED BY DR. JIMENEZ.
--- NOTE | 2020-05-20 12:45 | NUR ---
PLACED PT ON HFNC PER DR. JIMENEZ ORDERS. INITIAL SETTINGS @ FLOW 35 LPM, FIO2 100%. HFNC PLUGGED INTO RED OUTLET. SAT STABLE AT 92%. WILL CONTINUE TO MONITOR.
[2020-05-20] MEDS: NACL 0.9% 1,000 ML IV SCH (13:49)
--- NOTE | 2020-05-20 14:03 | NUR ---
ON HIGH FLOW OF OXYGEN AT 35L/MIN, FIO2-100% SATURATING AT 91 TOLERATED WELL
[2020-05-20] MEDS: ENOXAPARIN 80 MG/0.8 ML SYR SUBQ SCH (15:52)
--- NOTE | 2020-05-20 16:04 | NUR ---
FULLY AWAKE AND ALERT, NOT IN DISTRESS NOTED, DUE MEDICATION GIVEN
--- NOTE | 2020-05-20 18:01 | NUR ---
TRANSFERRED TO ROOM 23, RT INFORMED TO SET THE HIGH FLOW O2.
--- NOTE | 2020-05-20 19:28 | NUR ---
RECEIVED BEDSIDE REPORT FROM DAYSHIFT NURSE. PATIENT IS AWAKE, ALERT, AND ORIENTED. IV 24 G ON LEFT WRIST IS INTACT AND PATENT. PATIENT IS ON 35 L HI FLOW MASK AT 100%. O2 SATING 92%. PLAN OF CARE WAS DISCUSSED. SAFETY MEASURES IN PLACE. BED IS IN LOW POSITION AND CALL LIGHT WITHIN REACH. WILL CONTINUE TO MONITOR.
--- NOTE | 2020-05-20 19:30 | NUR ---
ENDORSED TO TRAUMA COUNSELLOR IN STABLE CONDITION FOR CONTINUITY OF CARE
--- NOTE | 2020-05-20 20:55 | NUR ---
BLOOD GLUCOSE CHECK IS 308. INSULIN COVERAGE NEEDED. ADMINISTERED 8 UNITS OF INSULIN SQ. Addendum: 05/21/20 at 0038 by Jovi Sanchez RN RN WRONG PATIENT NOTED.
--- NOTE | 2020-05-20 21:00 | NUR ---
ALL SCHEDULED MEDS GIVEN. PT IS STABLE AND AWAKE. NO S/S OF DISTRESS NOTED. WILL CONTINUE TO MONITOR Addendum: 05/21/20 at 0039 by Jovi Sanchez RN RN WRONG PATIENT NOTED
--- NOTE | 2020-05-20 22:00 | NUR ---
CHANGED AND CLEANED PATIENT.
[2020-05-21] VITALS: BP 152/60
--- NOTE | 2020-05-21 00:33 | NUR ---
CHECK ON PATIENT. PATIENT IS AWAKE AND STABLE. RESPIRATIONS EVEN AND UNLABORED. ON 5L NC SATING AT 90%. WILL CONTINUE TO MONITOR. Addendum: 05/21/20 at 0037 by Jovi Sanchez RN RN ON 35 L HIGH FLOW MASK SATING AT 85%.
--- NOTE | 2020-05-21 00:46 | NUR ---
PATIENT STARTING TO DESATURATE TO 82-84%. ASKED PATIENT TO PRONE. PATIENT IS NON-COMPLIANT. CALLED RT. RT INCREASED O2 TO 40L HIGH FLOW 100%. PATIENT IS NOW SATING 89-90%. WILL CONTINUE TO MONITOR
--- NOTE | 2020-05-21 01:28 | NUR ---
CHECKED PATIENT. PATIENT SATING 93% ON 40L HIGH FLOW 100% OXYGEN. NO DISTRESS NOTED. WILL CONTINUE TO MONITOR
--- NOTE | 2020-05-21 03:46 | NUR ---
CHECKED PATIENT. PATIENT SATING 90% ON 40L HIGH FLOW 100% OXYGEN. NO DISTRESS NOTED. WILL CONTINUE TO MONITOR
[2020-05-21 04:00] VITALS: BP 154/64
[2020-05-21 05:25] LABS: EOSINOPHILS % (AUTO) 0.1 % (0.0-4.0); HEMATOCRIT 42.7 % (36-48); HEMOGLOBIN 13.9 g/dL (12.0-16.0); LYMPHOCYTES # (AUTO) 0.5 K/uL (2.5-16.5); LYMPHOCYTES % (AUTO) 2.9 % (20.5-51.1); MEAN CORPUSCULAR HEMOGLOBIN 31 pg (27-31); MEAN CORPUSCULAR HGB CONC 33 g/dL (33-37); MEAN CORPUSCULAR VOLUME 93.7 fL (80-94); MONOCYTES # (AUTO) 0.7 K/uL (0.8-1.0); NEUTROPHILS # (AUTO) 17.3 K/uL (1.8-7.7); PLATELET COUNT (AUTO) 441 K/uL (140-450); RED BLOOD CELL COUNT(AUTO) 4.56 MIL/uL (4.20-5.40); RED CELL DISTRIBUTION WIDTH 14.1 % (11.6-13.7); WHITE BLOOD COUNT (AUTO) 18.6 K/uL (4.8-10.8)
[2020-05-21 06:10] LABS: ALBUMIN 2.8 g/dL (3.4-5.0); ANION GAP 17.3 (8-16); ASPARTATE AMINOTRANSFERASE 41 U/L (15-37); CARBON DIOXIDE 23.6 mmol/L (21-32); CHLORIDE 122 mmol/L (98-107); CREATININE 1.5 mg/dL (0.6-1.3); GLUCOSE 352 mg/dL (74-106); MAGNESIUM 3.7 mg/dL (1.8-2.4); POTASSIUM 4.9 mmol/L (3.5-5.1); TOTAL BILIRUBIN 0.4 mg/dL (0.0-1.0)
--- NOTE | 2020-05-21 06:42 | NUR ---
CHECKED ON PATIENT. PATIENT SATING AT 90% ON 40L HIFLOW 100% OXYGEN. NO S/S OF DISTRESS NOTED WILL CONTINUE TO MONITOR
[2020-05-21 07:07] LABS: LACTATE DEHYDROGENASE 475 U/L (81-234)
--- NOTE | 2020-05-21 07:25 | NUR ---
ENDORSED TO DAY SHIFT NURSE FOR CONTINUITY OF CARE. PT IS STABLE. NO DISTRESS NOTED
--- NOTE | 2020-05-21 07:26 | NUR ---
RECEIVED ENDORSEMENT FROM JACK TAMP OPERATOR, AWAKE, ALERT,ORIENTEDX3 DOMINICAN SPEAKER, BREATHING SPONTANEOUSLY WITH HIGH FLOW METER OF OXYGEN AT 40L/MIN, FIO2-100%, NON LABORED NOTED. WITH ONGOING IV FLUID WITH 0.9% NS AT 50ML/HOUR INFUSING AT RT HAND G24 IV CANNULA NOTED. SKIN WARM TO TOUCH AND INTACT. SAFETY MEASURES IN PLACE AND CONTINUE MONITOR.
[2020-05-21 08:00] VITALS: BP 126/70
[2020-05-21 08:57] LABS: SODIUM SERUM 158 mmol/L (136-145); UREA NITROGEN, BLOOD 64 mg/dL (7-18)
[2020-05-21] MEDS: NACL 0.9% 1,000 ML IV SCH (09:13)
[2020-05-21] MEDS: VITAMIN D 400 IU TAB PO SCH (09:13)
[2020-05-21] MEDS: ASCORBIC ACID 500 MG TAB PO SCH (09:14)
[2020-05-21] MEDS: amLODIPine 5 MG TAB PO SCH (09:14)
[2020-05-21] MEDS: ZINC SULF 220 MG CAP PO SCH (09:15)
[2020-05-21] MEDS: allopurinoL 300 MG TAB PO SCH (09:15)
[2020-05-21] MEDS: POTASSIUM CHLORIDE 8 MEQ TABER PO SCH (09:16)
--- NOTE | 2020-05-21 09:27 | NUR ---
FULLY AWAKE AND ALERT, DUE MEDICATION GIVEN, TOLERATED ORALLY , NOT IN DISTRESS NOTED
[2020-05-21] MEDS: NACL 0.45% 1,000 ML IV SCH ×2 (09:46→20:52)
--- NOTE | 2020-05-21 09:46 | NUR ---
ABOVE IV FLUID CHANGED TO 0.45% NS AT 100ML/HOUR ORDERED BY DR. JOE.
--- NOTE | 2020-05-21 10:49 | NUR ---
PHARMACY CALLED TO INFORM THE ATTENDING DOCTOR IF NEED TO CONTINUE THE AZITHROMAX 250MG PO DAILY AND CEFTRIAXONE 100MG IVPB Q24H IF THE WILL CONTINUE IT, DR INFORMED THRU TEXT MESSAGES, AWAITING REPLY
--- NOTE | 2020-05-21 11:07 | NUR ---
DR. JOE ORDERED TO CONTINUE THE AZITHROMAX AND CEFTRIAXONE, CARRIED OUT
[2020-05-21 12:00] VITALS: BP 149/59
--- NOTE | 2020-05-21 12:08 | NUR ---
VITAL SIGNS TAKEN AND RECORDED, NOT IN DISTRESS NOTED.
[2020-05-21] MEDS: AZITHROMYCIN 250 MG TAB PO SCH (13:26)
--- NOTE | 2020-05-21 13:41 | NUR ---
FULLY AWAKE AND ALERT, DUE MEDICATION GIVEN
--- NOTE | 2020-05-21 14:50 | NUR ---
05/21/20 RD FOLLOW UP COMPLETED PLEASE REFER TO NUTRITION ASSESSMENT UNDER CARE ACTIVITY FOR ESTIMATED NUTRITIONAL NEEDS. 1. MODIFY DIET TO GROUND AND MINCED TOLERATED 2. CONTINUE ENSURE TID 3. PROVIDE ASSISTANCE WITH MEALS AND ENCOURAGE PO INTAKE 4. MONITOR PO INTAKE FOR RISK OF ASPIRATION 5. RD TO FOLLOW-UP 2-3 DAYS, HIGH RISK KIANNA HERNANDEZ, RD
--- NOTE | 2020-05-21 15:29 | NUR ---
FULLY AWAKE AND ALERT, WATCHING TV
[2020-05-21 16:00] VITALS: BP 151/57
[2020-05-21] MEDS: ENOXAPARIN 80 MG/0.8 ML SYR SUBQ SCH (16:19)
--- NOTE | 2020-05-21 16:26 | NUR ---
PATIENT UNABLE TO PASSED STOOL FOR 3 DAYS, COLACE 1 TAB ORDERED PRN GIVEN
--- NOTE | 2020-05-21 18:07 | NUR ---
DINNER SERVED, ABLE TO FEED HERSELF, NOT IN DISTRESS NOTED
--- NOTE | 2020-05-21 19:27 | NUR ---
ENDORSED TO DEPOT MANAGER IN STABLE CONDITION FOR CONTINUITY OF CARE.
--- NOTE | 2020-05-21 19:30 | NUR ---
RECEIVED BEDSIDE REPORT FROM DAYSHIFT NURSE. PATIENT IS AWAKE, ALERT, AND ORIENTED. IV 24 G ON LEFT WRIST AND RIGHT FOREARM. BOTH IV'S ARE INTACT AND PATENT. PATIENT IS ON 40 L HI FLOW MASK AT 100%. O2 SATING 90%. PLAN OF CARE WAS DISCUSSED. SAFETY MEASURES IN PLACE. BED IS IN LOW POSITION AND CALL LIGHT WITHIN REACH. WILL CONTINUE TO MONITOR.
[2020-05-21 20:00] VITALS: BP 145/63
--- NOTE | 2020-05-21 21:42 | NUR ---
CHECKED ON PATIENT. PATIENT IS AWAKE AND STABLE. NO S/S OF RESPIRATORY DISTRESS NOTED.
--- NOTE | 2020-05-21 22:33 | NUR ---
WATER REPLACED FOR FULL BAG HFNC 40L 100% PT SLEEPING COMFORTABLY NO DISTRESS NOTED
[2020-05-22] VITALS: BP 149/61
--- NOTE | 2020-05-22 | NUR ---
CHECKED PATIENT. PATIENT IS ASLEEP, RESPIRATION EVEN UNLABORED ON 40 L HI FLOW O2 SATING 90% NO DISTRESS NOTED. WILL CONTINUE TO MONITOR
--- NOTE | 2020-05-22 02:17 | NUR ---
CHECKED PATIENT. PT IS STABLE. O2 SATURATION AT 85%. EDUCATED PATIENT TO NOT INHALE AND EXHALE THROUGH THE MOUTH. PATIENT VERBALIZED UNDERSTANDING.
[2020-05-22 04:00] VITALS: BP 153/68
--- NOTE | 2020-05-22 04:17 | NUR ---
PT SLEEPING COMFORTABLY WITH NO DISTRESS NOTED WATER 3/4 FULL WILL CONTINUE TO MONITOR
--- NOTE | 2020-05-22 04:20 | NUR ---
CHECKED PATIENT. PATIENT IS ASLEEP AND STABLE. NO DISTRESS NOTED WILL CONTINUE TO MONITOR.
[2020-05-22] MEDS: NACL 0.45% 1,000 ML IV SCH ×2 (05:30→16:24)
--- NOTE | 2020-05-22 07:08 | NUR ---
ENDORSED TO DAY SHIFT NURSE FOR CONTINUITY OF CARE. PT IS STABLE. NO DISTRESS NOTED
--- NOTE | 2020-05-22 07:09 | NUR ---
RECEIVED BEDSIDE REPORT FROM NICKEL OPERATOR NURSE. PATIENT IS AWAKE, ALERT, AND ORIENTED. IV 24 G ON LT WRIST AND RIGHT FOREARM. BOTH IV'S ARE INTACT AND PATENT. PATIENT IS ON 40 L HI FLOW MASK AT 100%. O2 SATING 90%. PLAN OF CARE WAS DISCUSSED. SAFETY MEASURES IN PLACE. BED IS IN LOW POSITION AND CALL LIGHT WITHIN REACH. WILL CONTINUE TO MONITOR.
[2020-05-22 07:54] LABS: BASOPHILS # (AUTO) 0.1 K/uL (0.00-0.22); BASOPHILS % (AUTO) 0.7 % (0.0-2.0); HEMATOCRIT 41.8 % (36-48); HEMOGLOBIN 13.5 g/dL (12.0-16.0); LYMPHOCYTES # (AUTO) 0.7 K/uL (2.5-16.5); LYMPHOCYTES % (AUTO) 3.5 % (20.5-51.1); MEAN CORPUSCULAR HEMOGLOBIN 30 pg (27-31); MEAN CORPUSCULAR HGB CONC 32 g/dL (33-37); MEAN CORPUSCULAR VOLUME 93.7 fL (80-94); MONOCYTES # (AUTO) 0.6 K/uL (0.8-1.0); MONOCYTES % (AUTO) 2.7 % (1.7-9.3); NEUTROPHILS # (AUTO) 19.4 K/uL (1.8-7.7); NEUTROPHILS % (AUTO) 93.1 % (42.2-75.2); PLATELET COUNT (AUTO) 385 K/uL (140-450); RED BLOOD CELL COUNT(AUTO) 4.46 MIL/uL (4.20-5.40); RED CELL DISTRIBUTION WIDTH 14.4 % (11.6-13.7); WHITE BLOOD COUNT (AUTO) 20.9 K/uL (4.8-10.8)
[2020-05-22 08:00] VITALS: BP 144/56
[2020-05-22 08:16] LABS: ALBUMIN 2.4 g/dL (3.4-5.0); ANION GAP 14.7 (8-16); ASPARTATE AMINOTRANSFERASE 33 U/L (15-37); CARBON DIOXIDE 21.1 mmol/L (21-32); CHLORIDE 116 mmol/L (98-107); CREATININE 1.3 mg/dL (0.6-1.3); GLUCOSE 319 mg/dL (74-106); LACTATE DEHYDROGENASE 535 U/L (81-234); MAGNESIUM 3.3 mg/dL (1.8-2.4); PHOSPHORUS 3.1 mg/dL (2.5-4.9); POTASSIUM 4.8 mmol/L (3.5-5.1); SODIUM SERUM 147 mmol/L (136-145); TOTAL BILIRUBIN 0.5 mg/dL (0.0-1.0); UREA NITROGEN, BLOOD 52 mg/dL (7-18)
[2020-05-22] MEDS: VITAMIN D 400 IU TAB PO SCH (09:40)
[2020-05-22] MEDS: amLODIPine 5 MG TAB PO SCH (09:40)
[2020-05-22] MEDS: ASCORBIC ACID 500 MG TAB PO SCH (09:40)
--- NOTE | 2020-05-22 09:40 | NUR ---
SCHEDULED MEDS GIVEN. PATIENT TOLERATED IT. PATIENT STATES HAVE POOR APPETITE, ENCOURAGED HER TO IF NOT EAT, AT LEAST DRINK ENSURE. PATIENT VERBALIZED UNDERSTANDING AND WILL TRY.
[2020-05-22] MEDS: ZINC SULF 220 MG CAP PO SCH (09:41)
[2020-05-22] MEDS: AZITHROMYCIN 250 MG TAB PO SCH (09:41)
[2020-05-22] MEDS: POTASSIUM CHLORIDE 8 MEQ TABER PO SCH (09:41)
[2020-05-22] MEDS: allopurinoL 300 MG TAB PO SCH (09:41)
[2020-05-22 12:00] VITALS: BP 153/61
--- NOTE | 2020-05-22 13:14 | NUR ---
SCHEDULED MED GIVEN. PATIENT TOLERATED IT. PATIENT'S PHONE CHARGED, AND SERGIO CALLED, PATIENT NOW CONVERSING WITH FAMILY. NO COMPLAINTS AT THIS TIME. CALL LIGHT WITHIN REACH. WILL CONTINUE TO MONITOR PATIENT.
[2020-05-22 16:00] VITALS: BP 137/59
[2020-05-22] MEDS: ENOXAPARIN 80 MG/0.8 ML SYR SUBQ SCH (16:19)
--- NOTE | 2020-05-22 16:24 | NUR ---
NEW BAG OF 1/2 NS HUNG. PATIENT TOLERATED IT. PATIENT HAS NO COMPLAINTS AT THIS TIME. DENIES PAIN. WILL CONTINUE TO MONITOR PATIENT.
--- NOTE | 2020-05-22 19:28 | NUR ---
REPORT GIVEN TO SALESPERSON ART OBJECTS AT BEDSIDE FOR CONTINUITY OF CARE. PATIENT RESTING IN BED.
--- NOTE | 2020-05-22 19:29 | NUR ---
RECD. RESTING IN BED, AWAEK, A/OX4. RESPIRATION EVEN AND UNLABORED. 0N HI-YULISSA OXYGEN, 02 SATURATION - 98%. IV OF 0.45% NS INFUSING AT 100 ML/HR, RIGHT FOREARM G24. INCONTINENT, ABLE TO VERBALIZED NEEDS. SAFETY MEASURES ENFORCED. BED IN THE LOWEST POSITION. SKIN COLOR NORMAL PER ETHNICITY. POC DISCUSSED. PATIENT NEEDS REINFORCEMENT. DENIES PAIN, 0/10.
[2020-05-22 20:00] VITALS: BP 131/62
--- NOTE | 2020-05-22 22:00 | NUR ---
CHECKED PATIENT, SLEEPING COMFORTABLY ON HER RIGHT SIDE. NO SOB NOTED.
[2020-05-23] VITALS: BP 133/63
--- NOTE | 2020-05-23 | NUR ---
CLEANSED AND REPOSITIONED IN BED WITH PILLOWS. DESATURATES WHEN HEAD OF THE BED LOWERED. 02 SAT GOES DOWN TO 85-86% ON HI-YULISSA OXYGEN.
[2020-05-23] MEDS: NACL 0.45% 1,000 ML IV SCH ×3 (01:30→21:30)
--- NOTE | 2020-05-23 02:00 | NUR ---
SLEEPING SUPINE IN BED, NO RESPIRATORY DISTRESS NOTED.
[2020-05-23 04:00] VITALS: BP 138/61
--- NOTE | 2020-05-23 04:00 | NUR ---
DESATURATING, 02 SAT - 83%, REPOSITIONED ON RIGHT SIDE, O2 SAT INCREASED TO 91%.
--- NOTE | 2020-05-23 05:30 | NUR ---
IV ACCIDENTALLY PULLED OUT BY PATIENT, NEW IV LINE INSERTED AT THE RIGHT WRIST G24.
--- NOTE | 2020-05-23 05:51 | NUR ---
PT RESTING COMFORTABLY WATER 1/3 FULL
--- NOTE | 2020-05-23 07:20 | NUR ---
CONDITION REMAIN STABLE. DESATURATES TO 86% WHEN IN THE PRONE POSITION BUT WHEN SLEEPING ON SIDES INCREASES TO 91%.
--- NOTE | 2020-05-23 07:25 | NUR ---
ENDORSED TO AM SHIFT NURSE FOR CONTINUITY OF CARE.
--- NOTE | 2020-05-23 07:50 | NUR ---
DECREASED FIO2 TO 90% PER DR. JIMENEZ TO KEEP O2 SAT ABOVE 90%
[2020-05-23] MEDS: VITAMIN D 400 IU TAB PO SCH (09:32)
[2020-05-23] MEDS: ASCORBIC ACID 500 MG TAB PO SCH (09:32)
[2020-05-23] MEDS: allopurinoL 300 MG TAB PO SCH (09:33)
[2020-05-23] MEDS: ZINC SULF 220 MG CAP PO SCH (09:33)
[2020-05-23] MEDS: amLODIPine 5 MG TAB PO SCH (09:33)
[2020-05-23] MEDS: AZITHROMYCIN 250 MG TAB PO SCH (09:33)
[2020-05-23] MEDS: POTASSIUM CHLORIDE 8 MEQ TABER PO SCH (09:36)
--- NOTE | 2020-05-23 09:36 | NUR ---
SCHEDULED MEDICATIONS GIVEN. EDUCATION PROVIDED. PATIENT TOLERATED WELL. PATIENT'S O2 SAT 90% WITH HI FLOW OXYGEN 40L/MIN. PATIENT DID NOT EAT BREAKFAST. ENCOURAGED PATIENT TO INCREASED ORAL INTAKE AND TRY TO FINISH ENSURE TO MAINTAIN ENOUGH NUTRITION. NO ACUTE DISTRESS NOTED. SAFETY MEASURES IN PLACE. WILL CONTINUE TO MONITOR.
[2020-05-23 12:00] VITALS: BP 104/70
--- NOTE | 2020-05-23 13:34 | NUR ---
DECREASED FIO2 TO 80%
--- NOTE | 2020-05-23 14:04 | NUR ---
ADMINISTERED IV ROCEPHIN VIA IVPB, HANG NEW BAG OF IVF. ASSISTED PATIENT TO USE THE BEDPAN. PATIENT IS ON FIO2 80% 40L HIGH FLOW OXYGEN. NO ACUTE DISTRESS NOTED AT THIS TIME. SAFETY MEASURES IN PLACE, CALL LIGHT WITHIN REACH. WILL CONTINUE TO MONITOR.
[2020-05-23 16:00] VITALS: BP 138/57
[2020-05-23] MEDS: ENOXAPARIN 80 MG/0.8 ML SYR SUBQ SCH (16:49)
--- NOTE | 2020-05-23 16:49 | NUR ---
LOVENOX GIVEN VIA SUBQ, EDUCATION PROVIDED. SAFETY MEASURES IN PLACE, WILL CONTINUE TO MONITOR.
--- NOTE | 2020-05-23 18:20 | NUR ---
PATIENT REFUSED TO EAT BREAKFAST AND LUNCH DUE TO POOR APPETITE. ENCOURAGED PATIENT TO PROMOTE ORAL INTAKE AND GET ENOUGH NUTRITION. PATIENT DRINK SOME WATER. OFFERED ENSURE, PATIENT DOES NOT LIKE THE TASTE.
--- NOTE | 2020-05-23 19:15 | NUR ---
ENDORSED PATIENT TO ORDER ADMINISTRATOR RN FOR CONTINUITY OF CARE. PATIENT WITH 40L HIGH FLOW OXYGEN, IN STABLE CONDITION.
--- NOTE | 2020-05-23 19:16 | NUR ---
RECEIVED REPORT FROM DAY SHIFT NURSE. PT IN BED RESTING. AAOX4, ON BEDREST. PT ON HIGH FLOW NC 40LPM @ 100% FIO2. PT NOT IN DISTRESS. RESPIRATIONS EVEN AND UNLABORED. ABDOMEN IS SOFT AND NON-TENDER. SKIN IS WARM, DRY, AND INTACT. PT WITH IV ACCESS ON RIGHT AND LEFT WRIST G24 PATENT AND INTACT, IVF INFUSING WELL. PT DENIES ANY PAIN OR DISCOMFORT AT THIS TIME. NO REQUESTS MADE. PT KEPT COMFORTABLE. SAFETY MEASURES IN PLACE. CALL LIGHT WITHIN REACH. WILL CONTINUE TO MONITOR.
--- NOTE | 2020-05-23 20:07 | NUR ---
VS STABLE. PT IN BED RESTING WITH HOB ELEVATED. HIGH FLOW IN PLACE. PT NOT IN DISTRESS. NO S/SX OF PAIN OR DISCOMFORT NOTED. PT KEPT COMFORTABLE. SAFETY MEASURES IN PLACE. WILL CONTINUE TO MONITOR.
--- NOTE | 2020-05-23 20:23 | NUR ---
PT DENIES SOB AT THIS TIME PT CURRENTLY ON HFNC WATER BAG FULL WILL CONTINUE TO MONITOR
[2020-05-23 20:55] VITALS: BP 128/64
--- NOTE | 2020-05-23 22:09 | NUR ---
ROUNDS MADE. PT ASLEEP. VISIBLE CHEST RISE AND FALL NOTED. PT NOT IN DISTRESS. HFNC IN [place]. PT KEPT COMFORTABLE. SAFETY MEASURES IN PLACE. CALL LIGHT WITHIN REACH. WILL CONTINUE TO MONITOR.
--- NOTE | 2020-05-24 00:01 | NUR ---
VS STABLE. PT IN BED RESTING. HFNC IN PLACE. PT NOT IN DISTRESS. PERINEAL CARE DONE WITH CARPENTER APPRENTICE. PT TOLERATED CARE WELL. NO S/SX OF DISCOMFORT NOTED. PT KEPT COMFORTABLE. SAFETY MEASURES IN PLACE. CALL LIGHT WITHIN REACH. WILL CONTINUE TO MONITOR.
--- NOTE | 2020-05-24 00:31 | NUR ---
ENDORSED TO ALICIA KearneyRN) FOR CONTINUITY OF CARE
--- NOTE | 2020-05-24 00:34 | NUR ---
RECEIVED PATIENT FROM [place]. PATIENT IS AWAKE AND COOPERATIVE. RESPIRATION EVEN UNLABORED ON HIGH FLOW 40L @ 100% FIO2. SKIN IS WARM AND DRY. IV PATENT AND INTACT. PLAN OF CARE WAS DISCUSSED. ALL SAFETY MEASURES IN PLACE. BED IS AT LOW POSITION. CALL LIGHT WITHIN REACH, WILL CONTINUE TO MONITOR.
[2020-05-24] MEDS: NACL 0.45% 1,000 ML IV SCH ×2 (01:26→17:48)
--- NOTE | 2020-05-24 02:32 | NUR ---
CHECKED ON PATIENT. PATIENT SLEEPING WITH NO DISTRESS. SATING 90%. WILL CONTINUE TO MONITOR
--- NOTE | 2020-05-24 04:41 | NUR ---
CHANGED PATIENT. NO DISTRESS NOTED. WILL CONTINUE TO MONITOR.
[2020-05-24 05:22] VITALS: BP 129/55
[2020-05-24 06:06] LABS: BASOPHILS # (AUTO) 0.1 K/uL (0.00-0.22); BASOPHILS % (AUTO) 0.3 % (0.0-2.0); HEMATOCRIT 37.4 % (36-48); HEMOGLOBIN 12.2 g/dL (12.0-16.0); LYMPHOCYTES % (AUTO) 4.6 % (20.5-51.1); MEAN CORPUSCULAR HEMOGLOBIN 30 pg (27-31); MEAN CORPUSCULAR HGB CONC 33 g/dL (33-37); MEAN CORPUSCULAR VOLUME 92.8 fL (80-94); MONOCYTES # (AUTO) 0.6 K/uL (0.8-1.0); MONOCYTES % (AUTO) 2.8 % (1.7-9.3); NEUTROPHILS # (AUTO) 19.9 K/uL (1.8-7.7); NEUTROPHILS % (AUTO) 92.3 % (42.2-75.2); PLATELET COUNT (AUTO) 269 K/uL (140-450); RED BLOOD CELL COUNT(AUTO) 4.03 MIL/uL (4.20-5.40); RED CELL DISTRIBUTION WIDTH 13.8 % (11.6-13.7); WHITE BLOOD COUNT (AUTO) 21.5 K/uL (4.8-10.8)
[2020-05-24 06:53] LABS: ALBUMIN 2.1 g/dL (3.4-5.0); ASPARTATE AMINOTRANSFERASE 20 U/L (15-37); CARBON DIOXIDE 22.5 mmol/L (21-32); CHLORIDE 112 mmol/L (98-107); CREATININE 1.1 mg/dL (0.6-1.3); GLUCOSE 284 mg/dL (74-106); POTASSIUM 4.5 mmol/L (3.5-5.1); SODIUM SERUM 143 mmol/L (136-145); TOTAL BILIRUBIN 0.5 mg/dL (0.0-1.0); UREA NITROGEN, BLOOD 38 mg/dL (7-18)
[2020-05-24 07:15] LABS: LACTATE DEHYDROGENASE 447 U/L (81-234)
--- NOTE | 2020-05-24 07:40 | NUR ---
ENDORSED PATIENT TO DAY SHIFT NURSE FOR CONTINUITY OF CARE.
[2020-05-24 08:00] VITALS: BP 139/65
[2020-05-24] MEDS: allopurinoL 300 MG TAB PO SCH (10:36)
[2020-05-24] MEDS: ASCORBIC ACID 500 MG TAB PO SCH (10:37)
[2020-05-24] MEDS: ZINC SULF 220 MG CAP PO SCH (10:38)
[2020-05-24] MEDS: POTASSIUM CHLORIDE 8 MEQ TABER PO SCH (10:38)
[2020-05-24] MEDS: amLODIPine 5 MG TAB PO SCH (10:46)
[2020-05-24 11:19] LABS: BASOPHILS # (AUTO) 0.2 K/uL (0.00-0.22); BASOPHILS % (AUTO) 0.7 % (0.0-2.0); EOSINOPHILS % (AUTO) 0.1 % (0.0-4.0); HEMATOCRIT 39.2 % (36-48); LYMPHOCYTES # (AUTO) 1.3 K/uL (2.5-16.5); LYMPHOCYTES % (AUTO) 5.7 % (20.5-51.1); MEAN CORPUSCULAR HEMOGLOBIN 31 pg (27-31); MEAN CORPUSCULAR HGB CONC 33 g/dL (33-37); MEAN CORPUSCULAR VOLUME 92.6 fL (80-94); MONOCYTES # (AUTO) 0.8 K/uL (0.8-1.0); MONOCYTES % (AUTO) 3.7 % (1.7-9.3); NEUTROPHILS # (AUTO) 20.2 K/uL (1.8-7.7); NEUTROPHILS % (AUTO) 89.8 % (42.2-75.2); PLATELET COUNT (AUTO) 276 K/uL (140-450); RED BLOOD CELL COUNT(AUTO) 4.24 MIL/uL (4.20-5.40); RED CELL DISTRIBUTION WIDTH 13.9 % (11.6-13.7); WHITE BLOOD COUNT (AUTO) 22.4 K/uL (4.8-10.8)
[2020-05-24 12:00] VITALS: BP 142/64
[2020-05-24 12:08] LABS: ANION GAP 13.8 (8-16); CARBON DIOXIDE 22.6 mmol/L (21-32); CHLORIDE 113 mmol/L (98-107); CREATININE 1.1 mg/dL (0.6-1.3); GLUCOSE 249 mg/dL (74-106); POTASSIUM 4.4 mmol/L (3.5-5.1); SODIUM SERUM 145 mmol/L (136-145); UREA NITROGEN, BLOOD 42 mg/dL (7-18)
--- NOTE | 2020-05-24 14:17 | NUR ---
05/24/20 RD FOLLOW UP COMPLETED PLEASE REFER TO NUTRITION ASSESSMENT UNDER CARE ACTIVITY FOR ESTIMATED NUTRITIONAL NEEDS. 1. CONTINUE GROUND/MOIST DIET TOLERATED 2. CONTINUE ENSURE TID 3. PROVIDE ASSISTANCE WITH MEALS AND ENCOURAGE PO INTAKE 4. RD TO FOLLOW-UP 2-3 DAYS, HIGH RISK KIANNA HERNANDEZ, RD
[2020-05-24 16:00] VITALS: BP 138/69
[2020-05-24] MEDS: ENOXAPARIN 80 MG/0.8 ML SYR SUBQ SCH (16:19)
--- NOTE | 2020-05-24 19:20 | NUR ---
RECEIVED BEDSIDE REPORT FROM DAY SHIFT NURSE. PATIENT IS SLEEPING AROUSABLE BY NAME AND TOUCH. RESPIRATION EVEN UNLABORED ON HIGH FLOW 40L @ 100% FIO2 AND 15L NON-REBREATHER MASK. SKIN IS WARM AND DRY. IV PATENT AND INTACT. PLAN OF CARE WAS DISCUSSED. ALL SAFETY MEASURES IN PLACE. BED IS AT LOW POSITION. CALL LIGHT WITHIN REACH. WILL CONTINUE TO MONITOR.
[2020-05-24 20:00] VITALS: BP 147/66
--- NOTE | 2020-05-24 21:02 | NUR ---
1935 PLACED PATIENT BACK ON HI FLOW AT 30 LITERS AT 100% FIO2. PATIENT WAS ON NRB MASK ONLY AT 100% FIO2. SATS WERE 82%. PATIENTS SATS IMPROVED ON HI FLOW AND NRB MASK. PATIENT EXPLAINED TO LEAVE MASK ON. PT CA[place] ISLANDER SPEAKING ONLY
--- NOTE | 2020-05-24 21:52 | NUR ---
CHECKED PATIENT. PATIENT TOOK OF HER NON-REBREATHER MASK. EXPLAINED TO THE PATIENT THE PURPOSE OF THE MASK. PATIENT NOD AND VERBALIZES UNDERSTANDING. WILL CONTINUE TO MONITOR
--- NOTE | 2020-05-24 23:31 | NUR ---
CHECKED ON PATIENT. PATIENT SLEEPING RESPIRATION EVEN UNLABORED ON HIGH FLOW 30L @ FIO2 99% AND 15L NON-REBREATHER MASK. WILL CONTINUE TO MONITOR
[2020-05-25] VITALS: BP 144/62
[2020-05-25] MEDS: NACL 0.45% 1,000 ML IV SCH ×2 (05:10→12:29)
--- NOTE | 2020-05-25 05:13 | NUR ---
PROVIDED MORNING CARE
[2020-05-25 06:35] VITALS: BP 139/59
--- NOTE | 2020-05-25 07:05 | NUR ---
RECEIVED REPORT FROM NIGHT NURSE FOR CONTINUITY OF CARE, PT IS STABLE, PT ON 15L NON-REBREATHER MASK WITH HIGH FLOW, PT HAS LEFT HAND 24G INFUSING 1/2 NS AT 100 ML/H AND RH 24G SALINE LOCK, SKIN INTACT, PT SITTING IN BED, AAOX 3-4, NO SIGNS OF DISTRESS NOTED, SAFETY MEASURES IN PLACE, WILL CONTINUE TO MONITOR.
--- NOTE | 2020-05-25 07:05 | NUR ---
ENDORSED PATIENT TO DAY SHIFT NURSE FOR CONTINUITY OF CARE
[2020-05-25 08:00] VITALS: BP 149/61
[2020-05-25] MEDS: ZINC SULF 220 MG CAP PO SCH (08:34)
[2020-05-25] MEDS: amLODIPine 5 MG TAB PO SCH (08:35)
[2020-05-25] MEDS: ASCORBIC ACID 500 MG TAB PO SCH (08:36)
[2020-05-25] MEDS: allopurinoL 300 MG TAB PO SCH (08:36)
[2020-05-25] MEDS: POTASSIUM CHLORIDE 8 MEQ TABER PO SCH (08:37)
--- NOTE | 2020-05-25 08:45 | NUR ---
ADMINISTERED SCHEDULED MEDICATION, TYLENOL FOR FEVER OF 100.6, MEDICATION EDUCATION PROVIDED, PT TOLERATED WELL. PT ON HI-FLOW OXYGEN. PT IS STABLE. WILL CONTINUE TO MONITOR.
[2020-05-25] MEDS ORDERED: ENOXAPARIN 80 MG/0.8 ML SYR SUBQ SCH (10:45)
--- NOTE | 2020-05-25 11:24 | NUR ---
ADMINISTERED SCHEDULED MEDICATION, MEDICATION EDUCATION PROVIDED, PT TOLERATED WELL, PT IS STABLE. WILL CONTINUE TO MONITOR.
[2020-05-25 12:00] VITALS: BP 143/58
--- NOTE | 2020-05-25 12:31 | NUR ---
ADMINISTERED SCHEDULED FLUIDS, EDUCATION PROVIDED. REPOSITION PT, EDUCATED PT ON NEED TO KEEP OXYGEN MASK ON. PT VERBALIZED UNDERSTANDING, PT IS STABLE. WILL CONTINUE TO MONITOR.
--- NOTE | 2020-05-25 15:00 | NUR ---
ASSESS PT AND SAT PT UP IN BED, O2 SAT IS 89 AND THEN DE-SAT TO 85. CALLED RT AND ASK TO COME EVALUATE PT FOR BIPAP.
[2020-05-25 16:30] VITALS: BP 137/116
--- NOTE | 2020-05-25 16:30 | NUR ---
CALLED TO ROOM 123B FOR CODE BLUE UPON ENTERING ROOM PT WAS BEING BAGGED WITH 100% FIO2 BY RT ARIK GUERRERO AT BEDSIDE READY TO INTUBATED PT, PT WAS INTUBATED BY AT 1647 WITH 7.5 ETT SECURED AT 23CM AT THE LIP THEN PLACED ON TAFOYA VENT SETTINGS AC 16 VT 450 PEEP 5 FIO2 100% ALARMS ON AND AUDIBLE AND VENT IS PLUGGED INTO RED OUTLET, SXN PT LARGE AMT OF THICK DARK BLOOD AND B\S ARE DIMINISHED BILATERALLY BVM AT BEDSIDE
--- NOTE | 2020-05-25 16:30 | NUR ---
PT HR WAS 60 ON HEALTH DATA ANALYST. NOTIFIED RT TO COME ASSESS PT WITH NURSE. UNABLE TO AROUSE PT. POST RUB DONE. CODE CALLED. CPR INITIATED.
--- NOTE | 2020-05-25 17:00 | NUR ---
CODE BLUE ENDED. PT INTUBATED ON NOREPI DRIP AND DOPAMIN DRIP.
--- NOTE | 2020-05-25 17:11 | NUR ---
NOTIFIED DR JOE PT CODED. ASKED DR JOE WANT BLOOD STABILIZER PT WILL BE ON. DR JOE ORDER LEVOPHED TO MAINTAIN MAP >65. NOTIFIED NURSE NESTOR OF DR HALE.
--- NOTE | 2020-05-25 17:32 | NUR ---
NOTIFIED DELLA ANDRES, PERSON TO NOTIFY, PT HAS BEEN INTUBATED AND WILL BE TRANSFERRED TO ICU.
--- NOTE | 2020-05-25 18:55 | NUR ---
ENDORSE PT TO ICU NURSE NESTOR, PT ON VENT.
--- NOTE | 2020-05-25 19:00 | NUR ---
ASSUMED CARE OF PATIENT FROM MED/SURG NURSE. PENIDNG BED PLACEMENT IN ICU. PT REMAINS INTUBATED AND ON 2 VASOPRESSORS. UNSTABLE. WILL CONTINUE TO MONITOR.
--- NOTE | 2020-05-25 19:30 | NUR ---
PT REMAINS UNSTABLE -- BP 50S SYSTOLIC, TITRATING MEDICATIONS ACCORDINGLY.
--- NOTE | 2020-05-25 20:00 | NUR ---
PT IS MAXED ON LEVOPHED 30MCG/MIN AND DOPAMINE AT 40MCG/KG/MIN. STILL UNSTABLE BP 50S SYSTOLIC.
[2020-05-25] MEDS ORDERED: NOREPINEPHRINE 4 MG/4 ML VIAL IV ONE (20:31)
--- NOTE | 2020-05-25 20:35 | NUR ---
PT IS ASYSTOLIC AT THIS TIME ON TELEMERTY READING AND ON DEFIB. CODE BLUE CALLED.
--- NOTE | 2020-05-25 20:45 | NUR ---
TIME OF CALLED BY DR CAREY. DR JOE AWARE AND WILL NOTIFY FAMILY.
--- NOTE | 2020-05-25 20:56 | NUR ---
[facility] CONTACTED SPOKE WITH [facility] - PT DOES NOT MEET CRITERIA FOR DONATION.
--- NOTE | 2020-05-25 21:02 | NUR ---
[facility] -- DEPUTY TO CALL BACK.
--- NOTE | 2020-05-25 21:36 | NUR ---
CALL MADE TO FAMILY SPOKE WITH BERNABE, INFORMED OF PLAN. BERNABE TO CALL BACK ONCE HOME IS DECIDED. STILL PENDING FACULTY RESEARCH ASSISTANT RELEASE.
--- NOTE | 2020-05-25 22:12 | NUR ---
SPOKE WITH DEMETRIUS BERKOWITZ [facility]. BODY RELEASED TO MORTUARY. NO BUSINESS LAW PROFESSOR RELEASE NUMBER AT THIS TIME.
--- NOTE | 2020-05-25 23:00 | NUR ---
POST MORTEM CARE COMPLETED. BODY MOVED TO [facility] PENDING ARRANGEMENTS FROM FAMILY. BELONGINGS GIVEN TO SECURITY FOR SAFE STORAGE.
[2020-05-26] MEDS ORDERED: DOPPLER MC ONE (14:59)
== END 2020-05-25 20:45 | disposition expired | DRG 720 ==
LOC: MED 13:26 → MMU 15:54 → MTU 05-20 18:40
PROVIDERS: ADMIT Emergency Medicine; ATTEND Emergency Medicine
PROC: XW13325 Transfusion of Convalescent Plasma (Nonautologous) into Peripheral Vein, Percutaneous Approach, New Technology Group 5 (ICD-10-PCS; 2020-05-17)
PROC: XW033E5 Introduction of Remdesivir Anti-infective into Peripheral Vein, Percutaneous Approach, New Technology Group 5 (ICD-10-PCS; 2020-05-19)
PROC: 5A09457 Assistance with Respiratory Ventilation, 24-96 Consecutive Hours, Continuous Positive Airway Pressure (ICD-10-PCS; principal; 2020-05-25)
PROC: 0BH17EZ Insertion of Endotracheal Airway into Trachea, Via Natural or Artificial Opening (ICD-10-PCS; 2020-05-25)
PROC: 06HY33Z Insertion of Infusion Device into Lower Vein, Percutaneous Approach (ICD-10-PCS; 2020-05-25)
PROC: B54BZZA Ultrasonography of Right Lower Extremity Veins, Guidance (ICD-10-PCS; 2020-05-25)
PROC: 5A12012 Performance of Cardiac Output, Single, Manual (ICD-10-PCS; 2020-05-25)
DX: A41.89 Other specified sepsis (principal); U07.1 COVID-19; J12.89 Other viral pneumonia; E87.1 Hypo-osmolality and hyponatremia; I10 Essential (primary) hypertension; K21.9 Gastro-esophageal reflux disease without esophagitis; J96.01 Acute respiratory failure with hypoxia; E43 Unspecified severe protein-calorie malnutrition; E66.9 Obesity, unspecified; E87.0 Hyperosmolality and hypernatremia; I46.9 Cardiac arrest, cause unspecified; N17.9 Acute kidney failure, unspecified; Z68.33 Body mass index [BMI] 33.0-33.9, adult
CPT/HCPCS: 31500; 36415; 36430; 71045; 80048; 80053; 80076; 81001; 82550; 82728; 83036; 83605; 83615; 83690; 83735; 83880; 84100; 84436; 84439; 84443; 84479; 84484; 85025; 85379; 85384; 85610; 85651; 85730; 86140; 86886; 86900; 86901; 87040; 87081; 87086; 87420; 87804; 93005; 94660; 96365; 96367; 96375; 97110; 97112; 97116; 97161-GP; 97530; 99291; J0456; J0696; J1100; J1644; J1650; J3490; J7060; P9017; U0003